=== PATIENT | female | born 1950 | race Caucasian/White ===

== ENCOUNTER → 2019-02-09 11:06 | Outpatient (REF) | payer OTHER, SELFPAY ==
[2019-02-09 12:13] LABS: Influenza A and B by PCR Rapid Negative (Negative)
== END ==
LOC: LAB 11:06
PROVIDERS: Family Provider Nurse Practitioner Family; PCP Nurse Practitioner Family; Visit Provider Internal Medicine
DX: R05 Cough (principal); R50.9 Fever, unspecified
CPT/HCPCS: 87400

== ENCOUNTER → 2019-02-10 11:50 | Outpatient (CLI) | payer OTHER, SELFPAY ==
--- NOTE | 2019-02-10 | DI.RAD.S_ITS ---
PROCEDURE: XR CHEST 2V INDICATIONS: COUGH TECHNIQUE: 2 views of the chest were acquired. COMPARISON: [facility], CT, ABDOMEN/PELVIS WITH CONTRAST, 04/08/2016, 7:06. FINDINGS: Surgical changes and devices: Small bilateral chest wall surgical clips previously present during CT scanning 04/08/16. Lungs and pleura: Lungs are clear when bilateral breast implants are taken into account overlying the lower half of the chest. There is a questionable increased radiodensity over the lower chest seen on the lateral view, however, that could represent a posterior mild or early pneumonia No pleural effusions or pneumothorax. Mediastinum: Mediastinal contours are normal. Heart size is normal. Bones and chest wall: No suspicious bony abnormalities. Soft tissues appear unremarkable. IMPRESSION: On the frontal view the chest there is a hazy increased radiodensity over the mid and lower lungs that is consistent with the previously documented bilateral breast implants superimposed. However on the lateral view there is increased radiodensity over the lower third of the thoracic spine to the degree that mild or early pneumonia may be superimposed in the posterior lung bases. Dictated by: True Valencia M.D. on 02/10/2019 at 12:16 Approved by: True Valencia M.D. on 02/10/2019 at 12:18
== END ==
PROVIDERS: PCP Nurse Practitioner Family; Visit Provider Internal Medicine
DX: R04.2 Hemoptysis (principal); Z98.82 Breast implant status
CPT/HCPCS: 71046

== ENCOUNTER 2019-04-10 00:10 | Emergency (ER) | payer OTHER, SELFPAY ==
[2019-04-10 00:17] VITALS: BP 125/84; PULSE 80; RESP 24; TEMP 37.2; O2SAT 99
[2019-04-10 00:30] VITALS: BP 137/74; PULSE 79; RESP 17; O2SAT 98
--- NOTE | 2019-04-10 00:30 | DI.RAD.S_ITS ---
PROCEDURE: XR CHEST 1V INDICATIONS: chest pain TECHNIQUE: One view of the chest was acquired. COMPARISON: [facility], CT, CT ANGIO CHEST PE PROTOCOL, 04/10/2019, 2:35. [facility], CR, XR CHEST 2V, 02/10/2019, 11:57. FINDINGS: Surgical changes and devices: None. Lungs and pleura: There is moderate patchy opacity within the right midlung. No pleural effusions or pneumothorax. Mediastinum: Mediastinal contours appear normal. Heart size is normal. Bones and chest wall: No suspicious bony lesions. Overlying soft tissues appear unremarkable. IMPRESSION: Right midlung pneumonia. Followup PA and lateral chest films are recommended to ensure resolution, and to exclude underlying malignancy. Dictated by: Inna Gomez M.D. on 04/10/2019 at 7:29 Approved by: Inna Gomez M.D. on 04/10/2019 at 7:30
--- NOTE | 2019-04-10 00:37 | ED_ITS ---
HPI - Chest Pain General Chief Complaint: Chest Pain Stated Complaint: chest pain Time Seen by Provider: 04/10/19 00:29 Source: patient Mode of arrival: ambulatory Limitations: no limitations History of Present Illness HPI narrative: Patient is a 58-year-old female who presents with right-sided chest pain. She says for the past few days she is had some mild body aches but nothing that has stopped her during the day but she definitely felt at night. She has had a mild cough. She says she was diagnosed with pneumonia in January. She has no heart palpitations no shortness of breath. No sweats or rigors. Her pain she says is deep under her right breast. It is worse with breathing. Related Data Home Medications Medication Instructions Recorded Confirmed LEVOTHYROXINE SODIUM (SYNTHROID) 50 mcg PO Q DAY #0 02/09/13 Previous Rx's Medication Instructions Recorded levofloxacin 750 mg PO DAILY #7 tab 04/10/19 Allergies Allergy/AdvReac Type Severity Reaction Status Date / Time latex Allergy Mild RED AND Unverified 02/03/18 11:56 ITCHY SKIN Review of Systems Review of Systems ROS Unobtainable: All systems reviewed & are unremarkable except as noted in HPI and below Constitutional Denies chills, Denies fever(s), Denies lethargy and Denies weakness Eyes Denies change in vision, Denies eye discharge, Denies irritation and Denies loss of vision Cardiovascular Reports chest pain, Denies irregular heart rhythm, Denies lightheadedness, Denies palpitations, Denies dyspnea, Denies dyspnea on exertion and Denies orthopnea Respiratory Denies chest congestion, Reports cough, Denies dyspnea and Denies dyspnea on exertion Gastrointestinal Gastrointestinal: Denies abdominal pain, Denies change in bowel habits, Denies diarrhea, Denies nausea and Denies vomiting Genitourinary Denies hematuria, Denies flank pain, Denies urinary incontinence and Denies urinary urgency Musculoskeletal Denies back pain, Denies muscle weakness, Denies numbness and Denies tingling Integumentary/Breasts Denies pruritus, Denies erythema, Denies rash and Denies wounds Neurologic Denies loss of vision, Denies numbness, Denies tingling and Denies weakness Endocrine Denies palpitations [facility] Medical History Breast cancer (Acute) Graves disease (Acute) Surgical History Status post mastectomy (Acute) Social History Smoking Status: Never smoker alcohol intake: never substance use type: does not use Social History Smoking Status: Never smoker alcohol intake: never substance use type: does not use Exam Initial Vital Signs Initial Vital Signs: Vital Signs Temperature 99 F 04/10/19 00:17 Pulse Rate 80 04/10/19 00:17 Respiratory Rate 24 04/10/19 00:17 Blood Pressure 125/84 04/10/19 00:17 Pulse Oximetry 99 04/10/19 00:17 GENERAL: Well-appearing, well-nourished and in no acute distress. HEENT: Head atraumatic,EOMI, pupils reactive, CARDIOVASCULAR: Regular rate and rhythm without murmurs, rubs or gallops. RESPIRATORY: Breath sounds equal bilaterally, no wheezes rales or rhonchi. ABDOMEN: Soft, nontender. Normoactive bowel sounds all 4 quadrants. No guarding or rebound. EXTREMITIES: Normal range of motion, no clubbing or edema. Neurovascularly intact NEUROLOGICAL: Alert and oriented x4.Normal gait and speech. SKIN: Warm, dry, no laceration, no petechiae, no rashes or lesions. Course Orders Ordered: ED Orders 04/10/19 EKG-12 Lead Routine 04/10/19 00:30 XR chest 1V Stat 04/10/19 00:45 Complete Blood Count AUTO DIFF Stat Comprehensive Metabolic Panel Stat Lipase Stat Partial Thromboplastin Time Stat Prothrombin Time INR Stat Troponin & CK Cardiac Panel Stat 04/10/19 02:08 CT angio chest PE protocol Stat 04/10/19 03:43 Troponin I Stat Discontinued Medications Levofloxacin (Levaquin) 750 mg PO NOW ONE Stop: 04/10/19 04:39 Last Admin: 04/10/19 04:47 Dose: 750 mg Vital Signs - 8 hr 04/10/19 00:17 04/10/19 00:30 04/10/19 00:45 Temperature 99 F Pulse Rate 80 79 82 Respiratory Rate 24 17 17 Blood Pressure 125/84 Blood Pressure [Left Arm] 137/74 120/70 Pulse Oximetry 99 98 99 04/10/19 02:15 04/10/19 02:30 04/10/19 04:46 Temperature Pulse Rate 74 69 66 Respiratory Rate 17 15 15 Blood Pressure Blood Pressure [Left Arm] 115/68 117/70 121/69 Pulse Oximetry 97 97 100 MDM - Chest Pain Lab Data Attestation: I reviewed the patient's lab results. Result diagrams: 04/10/19 00:45 04/10/19 00:45 Lab Results 04/10/19 04/10/19 04/10/19 Range/Units 00:45 00:45 00:45 WBC 7.6 (4.5-11.0) X10^3/uL RBC 3.93 L (4.0-5.2) X10^6/uL Hgb 12.7 (12.0-16.0) g/dL Hct 37.4 (36-46) % MCV 95.0 (80-100) fL MCH 32.4 (26-34) PG MCHC 34.1 (30-36) % RDW 13.6 (11.6-14.8) % Plt Count 208 (150-400) X10^3/uL Neut % (Auto) 73.2 (50-75) % Lymph % (Auto) 17.1 L (25-40) % [place] % (Auto) 7.2 (3-14) % Eos % (Auto) 2.1 (2-4) % Baso % (Auto) 0.4 (0-2) % Neut # (Auto) 5600 (0027-9998) /uL Lymph # (Auto) 1300 (1235-4423) /uL [place] # (Auto) 500 (0-900) /uL Eos # (Auto) 200 (0-450) /uL Baso # (Auto) 0 (0-100) /uL PT 11.9 (10.1-12.7) SECONDS INR 1.0 (0.9-1.3) APTT 31 (26.4-36.2) SECONDS Sodium 137 (137-145) mmol/L Potassium 4.0 (3.4-5.1) mmol/L Chloride 101 (98-107) mmol/L Carbon Dioxide 30 (22-32) mmol/L BUN 25 H (7-17) mg/dL Creatinine 0.80 (0.52-1.04) mg/dL Estimated GFR > 60.0 (>60) mL/min BUN/Creatinine Ratio 31.3 H (6-22) Glucose 139 H (80-110) mg/dL Calcium 10.0 (8.4-10.2) mg/dL Total Bilirubin 0.7 (0.2-1.3) mg/dL AST 36 (14-36) IU/L ALT 20 (9-52) IU/L Alkaline Phosphatase 106 (38-126) U/L Total Creatine Kinase 105 (30-135) U/L CK-MB (CK-2) 1.47 (<2.37) ng/mL CK-MB (CK-2) Rel Index 1.4 L (1.5-5.0) % Troponin I < 0.012 (0.01-0.034) ng/mL Total Protein 7.9 (6.3-8.2) g/dL Albumin 4.2 (3.5-5.0) g/dL Globulin 3.7 (1.7-4.1) g/dL Albumin/Globulin Ratio 1.1 (1.0-2.8) Lipase 53 (23-300) U/L 04/10/19 Range/Units 03:43 WBC (4.5-11.0) X10^3/uL RBC (4.0-5.2) X10^6/uL Hgb (12.0-16.0) g/dL Hct (36-46) % MCV (80-100) fL MCH (26-34) PG MCHC (30-36) % RDW (11.6-14.8) % Plt Count (150-400) X10^3/uL Neut % (Auto) (50-75) % Lymph % (Auto) (25-40) % [place] % (Auto) (3-14) % Eos % (Auto) (2-4) % Baso % (Auto) (0-2) % Neut # (Auto) (5601-0067) /uL Lymph # (Auto) (5557-8253) /uL [place] # (Auto) (0-900) /uL Eos # (Auto) (0-450) /uL Baso # (Auto) (0-100) /uL PT (10.1-12.7) SECONDS INR (0.9-1.3) APTT (26.4-36.2) SECONDS Sodium (137-145) mmol/L Potassium (3.4-5.1) mmol/L Chloride (98-107) mmol/L Carbon Dioxide (22-32) mmol/L BUN (7-17) mg/dL Creatinine (0.52-1.04) mg/dL Estimated GFR (>60) mL/min BUN/Creatinine Ratio (6-22) Glucose (80-110) mg/dL Calcium (8.4-10.2) mg/dL Total Bilirubin (0.2-1.3) mg/dL AST (14-36) IU/L ALT (9-52) IU/L Alkaline Phosphatase (38-126) U/L Total Creatine Kinase (30-135) U/L CK-MB (CK-2) (<2.37) ng/mL CK-MB (CK-2) Rel Index (1.5-5.0) % Troponin I < 0.012 (0.01-0.034) ng/mL Total Protein (6.3-8.2) g/dL Albumin (3.5-5.0) g/dL Globulin (1.7-4.1) g/dL Albumin/Globulin Ratio (1.0-2.8) Lipase (23-300) U/L Imaging Data Chest x-ray: Attestation: I personally reviewed and interpreted this imaging study as follows: My impression: Right middle lobe consolidation new from x-ray in January. CT scan - chest: Radiologist's impression: shift supervisor report: Negative for pulmonary embolism consolidation within the right lower lobe extending into the hilar favoring pneumonia. Neoplasm within the differential. Follow-up advised. Bronchial mucus plugging posterior left lobe. ECG Data Attestation: I personally reviewed and interpreted this ECG as follows: Prior ECG tracings: available for review Interpretation: Normal sinus rhythm rate [address] changes no T-wave inversions MDM Narrative Medical decision making narrative: Patient's pain has overall improved. She appears nontoxic she has no leukocytosis she is afebrile. X-ray mass versus pneumonia. She has history of breast cancer, x-ray was actually negative in January. CT has rule out pulmonary embolism and suggests more of a pneumonia picture. She does have a cough and some body aches. She states that she is going away next week for her son's wedding, and wants to make sure she is well. Is given a 1st dose of antibiotics in the ED. She overall appears well and not septic. Discharge Plan Departure Patient Disposition: Home Clinical Impression: Pneumonia Qualifiers: Pneumonia type: due to unspecified organism Laterality: right Lung location: lower lobe of lung Qualified Code(s): J18.1 - Lobar pneumonia, unspecified organism Discharge Date/Time: 04/10/19 04:55 Interventions: ED Discharge Assessment Last Done: 04/10/19 04:55 Instructions: DI for Pneumonia -- Adult Activity Restrictions/Additional Instructions: *You have been diagnosed with pneumonia right middle *What to do: Increase activity as tolerated, patient go away as pneumonia improved. However it is recommended that you have a follow-up x-ray in the next 2-3 months to make sure resolution. *Continue to take medications as directed Levaquin 750 mg 1 tab daily for 7 days. *Follow up with your primary care provider in 2-3 days *Return to ER if you should have increasing shortness of breath, increasing pain or any new, worsening or concerning symptoms Prescriptions: New levofloxacin 750 mg tablet 750 mg PO DAILY Qty: 7 RF: 0 No Action LEVOTHYROXINE SODIUM (SYNTHROID) 50 mcg PO Q DAY Qty: 0 RF: 0 Referrals: Melanie Yu ARNP [Primary Care Provider] -
[2019-04-10 00:45] VITALS: BP 120/70; PULSE 82; RESP 17; O2SAT 99
[2019-04-10 00:52] LABS: Add Manual Diff / Slide Review NO; Basophils Absolute Auto 0 /uL (0-100); Basophils Percent Auto 0.4 % (0-2); Eosinophils Absolute Auto 200 /uL (0-450); Eosinophils Percent Auto 2.1 % (2-4); Hematocrit 37.4 % (36-46); Hemoglobin 12.7 g/dL (12.0-16.0); Lymphocytes Absolute Auto 1300 /uL (1100-4500); Lymphocytes Percent Auto 17.1 % (25-40); Mean Corpuscular HGB Conc 34.1 % (30-36); Mean Corpuscular Hemoglobin 32.4 PG (26-34); Monocytes Absolute Auto 500 /uL (0-900); Monocytes Percent Auto 7.2 % (3-14); Neutrophils Absolute Auto 5600 /uL (1500-7000); Neutrophils Percent Auto 73.2 % (50-75); Platelet Count 208 X10^3/uL (150-400); Red Blood Cell Count 3.93 X10^6/uL (4.0-5.2); Red Cell Distribution Width 13.6 % (11.6-14.8); White Blood Cell Count 7.6 X10^3/uL (4.5-11.0)
[2019-04-10 00:58] LABS: Prothrombin Time 11.9 SECONDS (10.1-12.7)
[2019-04-10 01:00] LABS: PTT Partial Thromboplastin Tim 31 SECONDS (26.4-36.2)
[2019-04-10 01:02] LABS: Alanine Aminotransferase 20 IU/L (9-52); Albumin 4.2 g/dL (3.5-5.0); Albumin Globulin Ratio 1.1 (1.0-2.8); Alkaline Phosphatase 106 U/L (38-126); Aspartate Aminotransferase 36 IU/L (14-36); BUN Creatinine Ratio 31.3 (6-22); Bilirubin Total 0.7 mg/dL (0.2-1.3); Blood Urea Nitrogen 25 mg/dL (7-17); Carbon Dioxide 30 mmol/L (22-32); Chloride 101 mmol/L (98-107); Creatine Kinase 105 U/L (30-135); Estimated Glomerular Filt Rate > 60.0 mL/min (>60); Globulin 3.7 g/dL (1.7-4.1); Glucose 139 mg/dL (80-110); HEMOLYSIS < 15 (0-50); Lipase 53 U/L (23-300); Sodium 137 mmol/L (137-145); Total Protein 7.9 g/dL (6.3-8.2)
[2019-04-10 01:13] LABS: Troponin I < 0.012 ng/mL (0.01-0.034)
[2019-04-10 01:17] LABS: CKMB % Relative Index 1.4 % (1.5-5.0); Creatine Kinase MB 1.47 ng/mL (<2.37)
--- NOTE | 2019-04-10 02:08 | DI.CT.S_ITS ---
PROCEDURE: CT ANGIO CHEST PE PROTOCOL INDICATIONS: right chest pain, hx breast CA, TECHNIQUE: After the administration of intravenous contrast, 2 mm thick sections acquired from the pulmonary apices to the posterior costophrenic angles. 3-dimensional maximum intensity projection (MIP) coronal and sagittal reformats were then acquired through the thorax. For radiation dose reduction, the following was used: automated exposure control, adjustment of mA and/or kV according to patient size. COMPARISON: [facility], CR, XR CHEST 1V, 04/10/2019, 1:31. [facility], CT, THORAX WITH CONTRAST, 08/17/2009, 11:04. FINDINGS: Image quality: Excellent. Pulmonary arteries: Pulmonary arteries are normal in size, and demonstrate no intraluminal filling defects to suggest central pulmonary embolism. Lungs and pleura: There is mild patchy airspace opacity within the left lung base posteriorly. There is moderate patchy perihilar opacity within the right lower lobe. Mild patchy opacity within the right upper and right middle lobes. No pleural effusions or pneumothorax. Central and peripheral airways are patent. Mediastinum: Heart size is normal, without pericardial effusion. 15 mm short axis right hilar adenopathy. Calcified precarinal lymph nodes. 19 mm short axis subcarinal adenopathy. Thoracic aorta is normal in caliber and enhancement. Esophagus is normal in caliber, without hiatal hernia. Bones and chest wall: Bilateral breast implants are present. No suspicious bony lesions. Ribs and thoracic spine appear intact throughout. Thyroid gland is within normal limits. No axillary or supraclavicular adenopathy. Abdomen: Visualized portions of the upper abdomen demonstrate multiple calcifications within the spleen. IMPRESSION: 1. No pulmonary embolus. 2. Multifocal bilateral pneumonia. 3. Mediastinal and right hilar adenopathy, likely reactive. Followup chest CT in 3 months is recommended to ensure resolution, and to exclude underlying malignancy. 4. Remote granulomatous disease. 5. Concordant with preliminary interpretation. Dictated by: Inna Gomez M.D. on 04/10/2019 at 7:41 Approved by: Inna Gomez M.D. on 04/10/2019 at 7:45
[2019-04-10 02:15] VITALS: BP 115/68; PULSE 74; RESP 17; O2SAT 97
[2019-04-10 02:30] VITALS: BP 117/70; PULSE 69; RESP 15; O2SAT 97
[2019-04-10 04:14] LABS: Troponin I < 0.012 ng/mL (0.01-0.034)
[2019-04-10 04:46] VITALS: BP 121/69; PULSE 66; RESP 15; O2SAT 100
[2019-04-10] MEDS: levoFLOXacin 250 MG TABLET 750 MG PO (04:47)
== END 2019-04-10 04:55 | disposition home or self-care (01) ==
PROVIDERS: Emergency Provider Emergency Medicine; PCP Nurse Practitioner Family
DX: J18.1 Lobar pneumonia, unspecified organism (principal); R07.9 Chest pain, unspecified
CPT/HCPCS: 36415; 36591; 71045; 71275; 80053; 82550; 82553; 83690; 84484; 85025; 85610; 85730; 93005; 99283; 99285; Q9967

== ENCOUNTER 2019-08-04 08:46 | Outpatient (RCR) | payer OTHER, SELFPAY ==
--- NOTE | 2019-08-04 16:45 | PT.OIE ---
Current Diagnoses Benign paroxysmal vertigo, right ear (08/04/19) Past Medical History (Last Reviewed 04/10/19 @ 04:32 by Elizabeth Ma DO) Breast cancer (Acute) Graves disease (Acute) Past Surgical History (Last Reviewed 04/10/19 @ 04:32 by Elizabeth Ma DO) Status post mastectomy (Acute) Visit Care Team Role Provider Type AINSLEY Vega Attending Provider Non-Staff Primary Care Provider Specialty: Medical Address: [address] [place] [address], [id number] Email: Physical Therapy Initial Evaluation PT-OP-A Visit Information Start: 08/05/19 08:26 Freq: Status: Active Protocol: Document 08/04/19 16:00 DCW (Rec: 08/05/19 08:55 DCW [id number]) Out-Patient Physical Therapy Visit Information Visit Information Visit Type Initial Evaluation Visit Start Time 16:00 Visit Stop Time 16:45 Total Visit Minutes 45 Visit Number 1 Number of UNDERWRITING SPECIALIST Visits 0 Evaluation Information Evaluation Date 08/04/19 PT-OP-B Current Condition Start: 08/05/19 08:26 Freq: Status: Active Protocol: Document 08/04/19 16:00 DCW (Rec: 08/05/19 08:55 DC [id number]) Current Condition History of Current Condition Onset Date 3 week history Current Complaints The room spins when I get up from bed History of Current Condition Pt is a 69 year old female complaining of a three week history of both spontaneous and motion-induced vertigo. Pt notes that typically, she gets dizziness with getting into and out of bed, but will also occasionally notice a brief episode of vertigo when just walking around, not doing anything in particular with my head. Pt reports episodes last a few seconds each time, and occur about six times each day. Pt denies recent hearing changes, tinnitus, diplopia, dysarthria , discoordination, or decreased mentation/ consciousness. Pt denies hx of HTN, hyperlipidemia, diabetes , arrhythmia, head trauma, seizure, migraines, back/neck problems, CVA, anxiety/panic disorders, depression, or excessive smoking or drinking. Pt is 18 years removed from breast cancer treatment, and appears to be in complete remission at this time. Pt also has a history of Graves disease, and she reports the treatment was to kill my thyroid. Treatment Goals Patient/Caregiver Goals Eliminate position-dependent vertigo PT-OP-C Subjective Start: 08/05/19 08:26 Freq: Status: Active Protocol: Document 08/04/19 16:00 DCW (Rec: 08/05/19 08:55 DCW [id number]) Patient Questionnaires Dizziness Handicap Inventory DHI Score 12% DHI Functional Impairment 1 to 19% Impaired (Score 1-19) PT-OP-O Vestibular Start: 08/05/19 08:26 Freq: Status: Active Protocol: Document 08/04/19 16:00 DCW (Rec: 08/05/19 08:55 DCW [id number]) Vestibular Assessment Screening Tests Vestibular Artery Screen Negative Sharp-Tamar Test Negative Auditory Tests Rios Test Negative Rinne Test Negative Air Conduction Results Equal Visual Testing Smooth Pursuits Horizontal WNL Smooth Pursuits Vertical WNL Saccades Horizontal WNL Gaze Evoked Nystagmus With Fixation Negative Gaze Evoked Nystagmus Without Fixation Negative Heave Test Positive Bilateral Thrust Head Positive Bilateral Head Shake Negative Positional Testing [place]-Hallpike Negative Left,Negative Right Rolling Test Negative Left,Negative Right Supine to Sit Positive Comments Vestibular Comments Lisandra-Hallpike testing appeared to be negative bilaterally, however pt then suffered a reversal with vertigo and nystagmus upon returning to sitting. PT-OP-Q Treatments Start: 08/05/19 08:26 Freq: Status: Active Protocol: Document 08/04/19 16:00 DCW (Rec: 08/05/19 08:55 DCW [id number]) Canalithic Repositioning BPPV Treatment Brigette Affected Canal(s) Right posterior? Reps x2 PT-OP-T Assessment and Plan Start: 08/05/19 08:26 Freq: Status: Active Protocol: Document 08/04/19 16:00 DCW (Rec: 08/05/19 08:55 DCW [id number]) Physical Therapy Assessment Rehab Potential Rehabilitation Potential Good Evaluation Complexity Number of Personal Factors/Comorbidities 1-2 Number of Body Systems Impaired 1-2 Clinical Presentation at Evaluation Unstable Impairments Impairments Balance,Coordination, Vestibular Goals Two Impairment Pt displayed reversal with supine->sit Halfway Goal (LTG) Positional testing to be entirely negative LTG Duration 09/04/19 One Impairment Pt become vertiginous with bed mobility Short Term Goal (STG) Pt to report no symptoms when getting into or out of bed over a period of one week STG Duration 08/18/19 Assessment Summary Assessment Pt's vestibular testing was largely negative, however while setting up for the Lisandra- Hallpike test, pt reported that she had been through the test previously at her PCP, and described a positive right Hallpike. Although today's test was negative, she did demonstrate a reversal upon returning to sitting. 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 A right -sided Brigette maneuver was performed, which pt tolerated well. Pt was educated on BPPV, expectations for treatment, possible recurrence (BPPV has a ~50% recurrence rate in the five years following treatment ), and post-Brigette restrictions . Pt to return in ~1 week for a follow-up appointment, and intermittently afterward as indicated for treatment of BPPV. Physical Therapy Plan Frequency and Duration Frequency of Treatment 1x/Week Duration of Treatment 6 weeks Plan of Care Start Date 08/04/19 Plan of Care End Date 09/15/19 Therapeutic Interventions Therapeutic Interventions Balance Training,Canalithic Repositioning,Neuromuscular Re -education,Vestibular Rehabilitation Next Visit Focus/Plan Next Note Type Treatment Note Next Visit Plan Positional testing, CRM as indicated
--- NOTE | 2019-08-08 15:35 | PT.OPDS ---
Current Diagnoses Benign paroxysmal vertigo, right ear (08/04/19) Visit Care Team Role Provider Type AINSLEY Vega Attending Provider Non-Staff Primary Care Provider Specialty: Medical Address: [address] [place] [address], [facility] Email: Visit Number Visit Number 1 Discharge Summary PT-OP-B Current Condition Start: 08/05/19 08:26 Freq: Status: Active Protocol: Document 08/04/19 16:00 DCW (Rec: 08/05/19 08:55 DCW [id number]) Current Condition History of Current Condition Onset Date 3 week history Current Complaints The room spins when I get up from bed History of Current Condition Pt is a 69 year old female complaining of a three week history of both spontaneous and motion-induced vertigo. Pt notes that typically, she gets dizziness with getting into and out of bed, but will also occasionally notice a brief episode of vertigo when just walking around, not doing anything in particular with my head. Pt reports episodes last a few seconds each time, and occur about six times each day. Pt denies recent hearing changes, tinnitus, diplopia, dysarthria , discoordination, or decreased mentation/ consciousness. Pt denies hx of HTN, hyperlipidemia, diabetes , arrhythmia, head trauma, seizure, migraines, back/neck problems, CVA, anxiety/panic disorders, depression, or excessive smoking or drinking. Pt is 18 years removed from breast cancer treatment, and appears to be in complete remission at this time. Pt also has a history of Graves disease, and she reports the treatment was to kill my thyroid. Treatment Goals Patient/Caregiver Goals Eliminate position-dependent vertigo PT-OP-C Subjective Start: 08/05/19 08:26 Freq: Status: Active Protocol: Document 08/04/19 16:00 DCW (Rec: 08/05/19 08:55 DCW [id number]) Patient Questionnaires Dizziness Handicap Inventory DHI Score 12% DHI Functional Impairment 1 to 19% Impaired (Score 1-19) PT-OP-O Vestibular Start: 08/05/19 08:26 Freq: Status: Active Protocol: Document 08/04/19 16:00 DCW (Rec: 08/05/19 08:55 DCW [id number]) Vestibular Assessment Screening Tests Vestibular Artery Screen Negative Sharp-Tamar Test Negative Auditory Tests Rios Test Negative Rinne Test Negative Air Conduction Results Equal Visual Testing Smooth Pursuits Horizontal WNL Smooth Pursuits Vertical WNL Saccades Horizontal WNL Gaze Evoked Nystagmus With Fixation Negative Gaze Evoked Nystagmus Without Fixation Negative Heave Test Positive Bilateral Thrust Head Positive Bilateral Head Shake Negative Positional Testing Enterprise-Hallpike Negative Left,Negative Right Rolling Test Negative Left,Negative Right Supine to Sit Positive Comments Vestibular Comments Lisandra-Hallpike testing appeared to be negative bilaterally, however pt then suffered a reversal with vertigo and nystagmus upon returning to sitting. PT-OP-T Assessment and Plan Start: 08/05/19 08:26 Freq: Status: Active Protocol: Document 08/08/19 15:33 DC (Rec: 08/08/19 15:35 [facility] [id number]) Physical Therapy Assessment Goals Two Impairment Pt displayed reversal with supine->sit Clutch Inspector Goal (LTG) Positional testing to be entirely negative LTG Duration 09/04/19 One Impairment Pt become vertiginous with bed mobility Short Term Goal (STG) Pt to report no symptoms when getting into or out of bed over a period of one week STG Duration 08/18/19 Assessment Summary Assessment Pt phoned PT clinic today, requesting discharge. Initial eval fixed her complaints of positional vertigo, further appointments are no longer needed. Physical Therapy Plan Frequency and Duration Frequency of Treatment 1x/Week Duration of Treatment 6 weeks Plan of Care Start Date 08/04/19 Plan of Care End Date 09/15/19 Discharge Physical Therapy Discharge Reasons Patient Request Next Visit Focus/Plan Next Note Type Discharge Summary
== END 2019-08-24 15:37 | disposition home or self-care (01) ==
LOC: PHYS 08:46
PROVIDERS: PCP Nurse Practitioner Family; Visit Provider Nurse Practitioner Family
DX: H81.11 Benign paroxysmal vertigo, right ear (principal)
CPT/HCPCS: 95992; 97161

== ENCOUNTER → 2019-08-05 07:57 | Outpatient (CLI) | payer OTHER, SELFPAY ==
--- NOTE | 2019-08-05 | DI.RAD.S_ITS ---
PROCEDURE: XR CHEST 2V INDICATIONS: REPEAT PNEUMONIA CHECK TECHNIQUE: 2 views of the chest were acquired. COMPARISON: [facility], CT, CT ANGIO CHEST PE PROTOCOL, 04/10/2019, 2:35. [facility], CR, XR CHEST 1V, 04/10/2019, 1:31. [facility], CR, XR CHEST 2V, 02/10/2019, 11:57. FINDINGS: Surgical changes and devices: None. Lungs and pleura: Lungs are clear. No pleural effusions or pneumothorax. Mediastinum: Mediastinal contours are normal. Heart size is normal. Bones and chest wall: No suspicious bony abnormalities. Soft tissues appear unremarkable. IMPRESSION: Normal for age, resolution of prior pneumonia pattern. Dictated by: True Valencia M.D. on 08/05/2019 at 9:23 Approved by: True Valencia M.D. on 08/05/2019 at 9:25
== END ==
PROVIDERS: PCP Nurse Practitioner Family; Visit Provider Nurse Practitioner Family
DX: Z09 Encounter for follow-up examination after completed treatment for conditions other than malignant neoplasm (principal); Z87.01 Personal history of pneumonia (recurrent)
CPT/HCPCS: 71046

== ENCOUNTER 2019-12-02 19:58 | Observation (INO) | payer OTHER, MEDICARE, SELFPAY ==
[2019-12-02 20:06] VITALS: BP 127/60; PULSE 71; RESP 18; TEMP 36.7; O2SAT 100; BMI 27.2
[2019-12-02 20:53] LABS: Add Manual Diff / Slide Review NO; Basophils Absolute Auto 100 /uL (0-100); Basophils Percent Auto 0.5 % (0-2); Eosinophils Absolute Auto 100 /uL (0-450); Eosinophils Percent Auto 1.1 % (2-4); Hematocrit 32.7 % (36-46); Hemoglobin 11.3 g/dL (12.0-16.0); INR 1.1 (0.9-1.3); Lymphocytes Absolute Auto 1700 /uL (1100-4500); Lymphocytes Percent Auto 18.3 % (25-40); Mean Corpuscular HGB Conc 34.6 % (30-36); Mean Corpuscular Volume 95.4 fL (80-100); Monocytes Absolute Auto 600 /uL (0-900); Monocytes Percent Auto 6.8 % (3-14); Neutrophils Absolute Auto 6700 /uL (1500-7000); Neutrophils Percent Auto 73.3 % (50-75); Platelet Count 292 X10^3/uL (150-400); Prothrombin Time 12.2 SECONDS (10.1-12.7); Red Blood Cell Count 3.43 X10^6/uL (4.0-5.2); Red Cell Distribution Width 12.9 % (11.6-14.8); White Blood Cell Count 9.1 X10^3/uL (4.5-11.0)
[2019-12-02 20:55] LABS: PTT Partial Thromboplastin Tim 25 SECONDS (26.4-36.2)
[2019-12-02 21:11] LABS: Alanine Aminotransferase 17 IU/L (<35); Albumin 3.9 g/dL (3.5-5.0); Albumin Globulin Ratio 1.3 (1.0-2.8); Alkaline Phosphatase 70 U/L (38-126); Aspartate Aminotransferase 30 IU/L (14-36); BUN Creatinine Ratio 26.7 (6-22); Bilirubin Total 0.5 mg/dL (0.2-1.3); Blood Urea Nitrogen 24 mg/dL (7-17); Calcium 9.9 mg/dL (8.4-10.2); Carbon Dioxide 26 mmol/L (22-32); Chloride 107 mmol/L (98-107); Estimated Glomerular Filt Rate > 60.0 mL/min (>60); Glucose 128 mg/dL (80-110); HEMOLYSIS 19 (0-50); Potassium 3.8 mmol/L (3.4-5.1); Sodium 140 mmol/L (137-145); Total Protein 6.9 g/dL (6.3-8.2)
[2019-12-02 21:30] VITALS: BP 112/61; PULSE 78; RESP 16; O2SAT 94
[2019-12-02 22:30] VITALS: BP 104/58; PULSE 78; RESP 20; O2SAT 96
[2019-12-02 22:40] VITALS: BP 83/48; PULSE 61; RESP 28; O2SAT 99
[2019-12-02] MEDS: SODIUM CHLORIDE 0.9% 1,000 ML 1000 ML IV ×2 (22:40→22:50)
--- NOTE | 2019-12-02 22:47 | DI.CT.S_ITS ---
PROCEDURE: CT ABDOMEN PELVIS W CON INDICATIONS: rectal bleeding TECHNIQUE: After the administration of oral and intravenous contrast, 5 mm thick sections acquired from the diaphragms to the symphysis. 5 mm thick coronal and sagittal reformats were performed. For radiation dose reduction, the following was used: automated exposure control, adjustment of mA and/or kV according to patient size. COMPARISON: [facility], CT, ABDOMEN/PELVIS WITH CONTRAST, 04/08/2016, 7:06. FINDINGS: Image quality: Diagnostic. ABDOMEN: Lung bases: Lung bases are clear. Heart size is normal. Solid organs: Calcified granulomas within the liver and spleen are present. No focal liver or splenic lesions are evident. There is minimal intrahepatic jesus redilatation. No significant extrahepatic biliary dilatation is identified. Multiple layering calcified gallstones are present within the gallbladder. The pancreas and adrenals are within normal limits. The kidneys are also within normal limits. There is no hydronephrosis or definite renal calculus. Peritoneum and bowel: There is a small hiatal hernia. The stomach is otherwise unremarkable. The small bowel loops are nondilated. Extensive distal colonic diverticulosis is evident without surrounding inflammation to definitively suggest diverticulitis. The midportion of the transverse colon appears to be collapsed, rather than related to a focal lesion. However, metastases cannot be completely excluded. The appendix is not definitely seen. There is no free fluid, loculated fluid collection or free air. Nodes and vessels: No retroperitoneal or mesenteric adenopathy. Aorta and inferior vena cava are normal in caliber. There is aortic atherosclerosis. Bones: No acute fracture or suspicious osseous lesion is identified. There moderate degenerative changes of the lumbar spine. PELVIS: Genitourinary: Bladder wall thickness is normal. The uterus is surgically absent. The ovaries are likely either atrophic or surgically absent. Miscellaneous: No inguinal hernias or adenopathy. No free fluid or loculated fluid collection is identified. There is no free air. Bones: No suspicious bony lesions. No acute pelvic fractures are identified. There mild degenerative changes of the pelvic joints. IMPRESSION: 1. Extensive colonic diverticulosis without evidence of diverticulitis. 2. Short segment area of narrowing involving the transverse colon most likely is physiologic (related to a lack of intraluminal stool at this location). However, colonoscopy may be helpful to exclude a colonic lesion/neoplasm, particularly if there is clinical concern for cancer. 3. No bowel obstruction. There may be constipation. 4. Cholelithiasis. Note: The preliminary report provided by [facility] is concordant with the final report. Dictated by: Adonay Lopez M.D. on 12/03/2019 at 7:17 Approved by: Adonay Lopez M.D. on 12/03/2019 at 7:23
[2019-12-02 22:55] VITALS: BP 71/50; PULSE 73; RESP 13; O2SAT 100
[2019-12-02 23:40] VITALS: BP 146/78; PULSE 75; RESP 38; O2SAT 98
[2019-12-02] MEDS: ONDANSETRON 4 MG/2 ML INJ IV (23:44)
--- NOTE | 2019-12-02 23:48 | ED.GIBLEED ---
HPI - GI Bleed General Chief complaint: GI Bleed Stated complaint: lots of blood in stool and clots, weakness Time Seen by Provider: 12/02/19 22:44 Source: patient Mode of arrival: Ambulatory Limitations: no limitations History of Present Illness HPI Narrative: CC: rectal bleeding HPI: The patient is a 69-year-old female who presented to the emergency department with bright red rectal bleeding that started at 5:30 p.m. tonight. The patient has never had rectal bleeding before. She denies having any significant abdominal pain but has had mild cramping. She has had spurts in which she has had bright red bleeding. She denies a personal history of diverticulosis or diverticulitis. She denies a history of Crohn's disease or ulcerative colitis. She is not on any blood thinners. 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 She has had chemotherapy and radiation therapy for this cancer 20 years ago. She has also had a vaginal hysterectomy 30 years ago. Today she has had cold sweats but has had no fever or chills. She denies headache. She has been dizzy and lightheaded but has not noted any palpitations. She denies any chest pain. She has had nausea but no vomiting and denies any diarrhea. This is the 1st time she has ever had rectal bleeding as such. She denies any urinary symptoms. Related Data Home Medications Medication Instructions Recorded Confirmed LEVOTHYROXINE SODIUM (SYNTHROID) 112 mcg PO Q DAY #0 02/09/13 12/03/19 diphenhydramine HCl [Allergy 25 mg PO TID PRN 12/03/19 12/03/19 (diphenhydramine)] multivit with min-folic acid 0.4 mg PO DAILY 12/03/19 12/03/19 [Adult One Daily Multivitamin] Allergies Allergy/AdvReac Type Severity Reaction Status Date / Time latex Allergy Mild RED AND Verified 12/02/19 20:06 ITCHY SKIN Review of Systems Review of Systems ROS Unobtainable: All systems reviewed & are unremarkable except as noted in HPI and below Patient History Medical History Breast cancer (Acute) Graves disease (Acute) Surgical History Status post mastectomy (Acute) Social History household members: none Smoking Status: Never smoker alcohol intake: current substance use type: does not use Smoking Status: Never smoker Substance Use Type: does not use Exam Narrative Exam Narrative: PHYSICAL EXAM: CONSTITUTIONAL: Awake, Alert, Oriented, Coherent, Cooperative in moderate distress. The patient is very stoic and appears very pale HEAD: AT/NC EENT: PERRL, FROM of eyes, no discharge, Oral mucosa is moist and pale. NECK: Supple, no obvious JVD, Trachea is midline without stridor, no palpable LN or masses. SPINE: No gross deformity, no palpable tenderness of the cervical, thoracic, lumbar or sacral spine. No CVA tenderness. THORAX: No deformity, retractions, chest wall tenderness, subcutaneous air or crepitice. LUNGS: Clear with symmetrical breath sounds without respiratory distress HEART: Heart tones are distant and regular without murmur. There is no tachycardia. ABDOMEN: Soft, in all 4 quadrants except that there was tenderness in the left upper quadrant without guarding rebound or rigidity. EXTREMITIES: No edema, cyanosis, deformity or tenderness. SKIN: No rash, bruising, petechiae or purpura. However there is generalized pallor. NEURO: Awake, alert, oriented, conversive, cranial nerves II-XII are symmetrical and normal, moves all 4 extremities and is ambulatory Initial Vital Signs Initial Vital Signs: Vital Signs Temperature 98.1 F 12/02/19 20:06 Pulse Rate 71 12/02/19 20:06 Respiratory Rate 18 12/02/19 20:06 Blood Pressure 127/60 12/02/19 20:06 Pulse Oximetry 100 12/02/19 20:06 Course Course Course Narrative: 2348 after 900 cc of normal saline the patient's blood pressure has improved to 146/78. [address] scan revealed cholelithiasis and sigmoid diverticulosis without CT evidence of acute diverticulitis. The patient is having rectal bleeding and will be started on Cipro for 400 mg IV and Flagyl 500 mg IV. I will call and discuss the patient with the General surgery on-call. at 2349 the patient's blood pressure was 148/76. White blood count 9.1 hemoglobin 11.3 hematocrit 32.7. BUN 24 GFR was greater than 60. CT scan of the abdomen revealed cholelithiasis and diverticulosis without evidence of diverticulitis. 0000 a repeat hemoglobin hematocrit was ordered on the patient and a call was placed to the general surgeon on-call when she was admitted to the intensive care unit. Orders Ordered: Discontinued Medications Acetaminophen (Tylenol) 325 mg PO PACUNOW PRN PRN Reason: Pain, Mild (1-3) Fentanyl (Sublimaze) 0 mcg IV Q5M PRN PRN Reason: Pain, Moderate (4-6) Hydromorphone HCl (Dilaudid) 0 mg IV Q5MIN PRN PRN Reason: Pain, Mild (1-3) Sodium Chloride (Normal Saline 0.9%) 1,000 mls @ 1,000 mls/hr IV BOLUS ONE Stop: 12/02/19 23:46 Last Infusion: 12/02/19 23:50 Dose: 0 mls/hr Documented by: Admin: 12/02/19 22:50 Dose: 1,000 mls/hr Documented by: CHA Octreotide Acetate 500 mcg/ (Sodium Chloride) 101 mls @ 5.05 mls/hr IV CONT ALEX; Protocol Last Admin: 12/03/19 14:26 Dose: 24.75 mcg/hr, 5 mls/hr Documented by: Infusion: 12/03/19 14:26 Dose: 0 mcg/hr, 0 mls/hr Documented by: Infusion: 12/03/19 13:26 Dose: 0 mcg/hr, 0 mls/hr Documented by: Infusion: 12/03/19 01:40 Dose: 25 mcg/hr, 5.05 mls/hr Documented by: Infusion: 12/03/19 01:25 Dose: 0 mcg/hr, 0 mls/hr Documented by: Admin: 12/02/19 23:54 Dose: 25 mcg/hr, 5.05 mls/hr Documented by: CHA Metronidazole (Flagyl) 500 mg in 100 mls @ 100 mls/hr IV NOW ONE Stop: 12/03/19 00:51 Last Infusion: 12/03/19 01:25 Dose: 0 mls/hr Documented by: Admin: 12/03/19 00:28 Dose: 100 mls/hr Documented by: CHA Ciprofloxacin (Cipro) 400 mg in 200 mls @ 200 mls/hr IV NOW [facility] Sodium Chloride (Normal Saline 0.9%) 1,000 mls @ 1,000 mls/hr IV BOLUS ONE Stop: 12/03/19 02:01 Last Infusion: 12/02/19 22:50 Dose: 0 mls/hr Documented by: Admin: 12/02/19 22:40 Dose: 1,000 mls/hr Documented by: CHA Lactated Ringer's (Lactated Ringers) 1,000 mls @ 100 mls/hr IV CONT ALEX Last Infusion: 12/04/19 04:03 Dose: 0 mls/hr Documented by: Admin: 12/04/19 00:24 Dose: 100 mls/hr Documented by: Infusion: 12/04/19 00:24 Dose: 100 mls/hr Documented by: Admin: 12/03/19 14:26 Dose: 100 mls/hr Documented by: Infusion: 12/03/19 12:30 Dose: 100 mls/hr Documented by: Admin: 12/03/19 02:30 Dose: 100 mls/hr Documented by: BISHNU Sodium Chloride (Normal Saline 0.9%) 1,000 mls @ 1,000 mls/hr IV BOLUS PRN PRN Reason: Fluid replacement Last Infusion: 12/03/19 13:24 Dose: 0 mls/hr Documented by: Admin: 12/03/19 05:21 Dose: 1,000 mls/hr Documented by: BISHNU Levothyroxine Sodium (Synthroid) 50 mcg PO 0600 [facility] Last Admin: 12/04/19 05:41 Dose: Not Given Documented by: Admin: 12/03/19 04:44 Dose: Not Given Documented by: BISHNU Metoclopramide HCl (Reglan) 10 mg IV NOW PRN PRN Reason: Nausea And Vomiting Morphine Sulfate (Morphine) 2 mg IV Q2HR PRN PRN Reason: Pain, Moderate (4-6) Octreotide Acetate (Sandostatin) 50 mcg IV NOW ONE Stop: 12/02/19 23:11 Last Admin: 12/02/19 23:54 Dose: 50 mcg Documented by: CHA Ondansetron HCl (Zofran) 4 mg IV NOW ONE Stop: 12/02/19 20:46 Last Admin: 12/02/19 23:44 Dose: 4 mg Documented by: CHA Ondansetron HCl (Zofran) 4 mg IV Q4HR PRN PRN Reason: Nausea And Vomiting Last Admin: 12/04/19 14:56 Dose: 4 mg Documented by: Admin: 12/03/19 23:50 Dose: 4 mg Documented by: Admin: 12/03/19 19:55 Dose: 4 mg Documented by: TEDDY Ondansetron HCl (Zofran) 4 mg IV NOW PRN PRN Reason: Nausea And Vomiting Pantoprazole Sodium (Protonix) 40 mg IV BID ALEX Last Admin: 12/04/19 08:03 Dose: 40 mg Documented by: Admin: 12/03/19 21:18 Dose: Not Given Documented by: Admin: 12/03/19 10:22 Dose: 40 mg Documented by: Admin: 12/03/19 02:33 Dose: 40 mg Documented by: BISHNU Polyethylene Glycol/Electrolytes (Golytely Solution) 4,000 ml PO NOW ONE Stop: 12/03/19 12:02 Last Admin: 12/03/19 16:19 Dose: 4,000 ml Documented by: TRACEY Vital Signs Vital signs: Vital Signs - 8 hr 12/02/19 21:30 12/02/19 22:30 12/02/19 22:40 Pulse Rate 78 78 61 Respiratory Rate 16 20 28 H Blood Pressure [Left Arm] 112/61 104/58 L 83/48 L Pulse Oximetry 94 96 99 12/02/19 22:55 12/02/19 23:40 12/03/19 00:00 Pulse Rate 73 75 72 Respiratory Rate 13 38 H 16 Blood Pressure [Left Arm] 71/50 L 146/78 H 123/68 Pulse Oximetry 100 98 100 MDM - GI Bleed Medical Records Attestation: I reviewed the patient's medical records. Lab Data Attestation: I reviewed the patient's lab results. Result diagrams: 12/04/19 10:20 12/04/19 01:33 Labs: Lab Results 12/02/19 12/02/19 12/02/19 Range/Units 20:34 20:34 20:34 WBC 9.1 (4.5-11.0) X10^3/uL RBC 3.43 L (4.0-5.2) X10^6/uL Hgb 11.3 L (12.0-16.0) g/dL Hct 32.7 L (36-46) % MCV 95.4 (80-100) fL MCH 33.0 (26-34) PG MCHC 34.6 (30-36) % RDW 12.9 (11.6-14.8) % Plt Count 292 (150-400) X10^3/uL Neut % (Auto) 73.3 (50-75) % Lymph % (Auto) 18.3 L (25-40) % Creek % (Auto) 6.8 (3-14) % Eos % (Auto) 1.1 L (2-4) % Baso % (Auto) 0.5 (0-2) % Neut # (Auto) 6700 (5274-8325) /uL Lymph # (Auto) 1700 (3034-3038) /uL Creek # (Auto) 600 (0-900) /uL Eos # (Auto) 100 (0-450) /uL Baso # (Auto) 100 (0-100) /uL PT 12.2 (10.1-12.7) SECONDS INR 1.1 (0.9-1.3) APTT 25 L D (26.4-36.2) SECONDS Sodium 140 (137-145) mmol/L Potassium 3.8 (3.4-5.1) mmol/L Chloride 107 (98-107) mmol/L Carbon Dioxide 26 (22-32) mmol/L BUN 24 H (7-17) mg/dL Creatinine 0.90 (0.52-1.04) mg/dL Estimated GFR > 60.0 (>60) mL/min BUN/Creatinine Ratio 26.7 H (6-22) Glucose 128 H (80-110) mg/dL Calcium 9.9 (8.4-10.2) mg/dL Total Bilirubin 0.5 (0.2-1.3) mg/dL AST 30 (14-36) IU/L ALT 17 (<35) IU/L Alkaline Phosphatase 70 (38-126) U/L Total Protein 6.9 (6.3-8.2) g/dL Albumin 3.9 (3.5-5.0) g/dL Globulin 3.0 (1.7-4.1) g/dL Albumin/Globulin Ratio 1.3 (1.0-2.8) Blood Type Antibody Screen Crossmatch 12/02/19 Range/Units 20:34 WBC (4.5-11.0) X10^3/uL RBC (4.0-5.2) X10^6/uL Hgb (12.0-16.0) g/dL Hct (36-46) % MCV (80-100) fL MCH (26-34) PG MCHC (30-36) % RDW (11.6-14.8) % Plt Count (150-400) X10^3/uL Neut % (Auto) (50-75) % Lymph % (Auto) (25-40) % Creek % (Auto) (3-14) % Eos % (Auto) (2-4) % Baso % (Auto) (0-2) % Neut # (Auto) (0697-0537) /uL Lymph # (Auto) (1845-9025) /uL Creek # (Auto) (0-900) /uL Eos # (Auto) (0-450) /uL Baso # (Auto) (0-100) /uL PT (10.1-12.7) SECONDS INR (0.9-1.3) APTT (26.4-36.2) SECONDS Sodium (137-145) mmol/L Potassium (3.4-5.1) mmol/L Chloride (98-107) mmol/L Carbon Dioxide (22-32) mmol/L BUN (7-17) mg/dL Creatinine (0.52-1.04) mg/dL Estimated GFR (>60) mL/min BUN/Creatinine Ratio (6-22) Glucose (80-110) mg/dL Calcium (8.4-10.2) mg/dL Total Bilirubin (0.2-1.3) mg/dL AST (14-36) IU/L ALT (<35) IU/L Alkaline Phosphatase (38-126) U/L Total Protein (6.3-8.2) g/dL Albumin (3.5-5.0) g/dL Globulin (1.7-4.1) g/dL Albumin/Globulin Ratio (1.0-2.8) Blood Type O Negative Antibody Screen Negative Crossmatch See Detail ECG Data Attestation: I personally reviewed and interpreted this ECG as follows: Interpretation: The patient's EKG obtained on December 02 at 23:05:49 revealed a normal sinus rhythm with a ventricular rate of 69. Intervals were normal. QTC was 436 milliseconds normal she had borderline left axis deviation. T-waves were inverted in V1 while the T-waves in lead III was flat. There are no other acute diagnostic ST changes or T-wave changes. Discharge Plan Departure Patient Disposition: Admitted As Inpatient Clinical Impression: Bright red rectal bleeding, Acute hypotension, Diverticulosis Cholelithiasis Qualifiers: Cholelithiasis location: gallbladder Cholecystitis presence: without cholecystitis Biliary obstruction: without biliary obstruction Qualified Code(s): K80.20 - Calculus of gallbladder without cholecystitis without obstruction Discharge Date/Time: 12/03/19 01:30 Referrals: Melanie Yu ARNP [Primary Care Provider] - Admit Date/Time: 12/03/19 00:27 Admit Provider: Claire Burroughs
[2019-12-02] MEDS: OCTREOTIDE 100 MCG/ML VIAL 50 MCG IV (23:54)
[2019-12-02] MEDS: OCTREOTIDE 500 MCG in SODIUM CHLORIDE 0.9% 100 ML 5.05 ML IV (23:54)
[2019-12-03] VITALS (21 sets, daily range): BP systolic 90–145; BP diastolic 52–79; PULSE 63–91; RESP 12–26; TEMP 36.2–37; O2SAT 92–100; BMI 27.4
[2019-12-03] MEDS: metroNIDAZOLE 500 MG/100 ML PIGGYBACK 100 MG IV (00:28)
[2019-12-03 01:02] LABS: Hematocrit 29.7 % (36-46); Hemoglobin 10.2 g/dL (12.0-16.0)
[2019-12-03] MEDS: LACTATED RINGERS 1,000 ML 100 ML IV ×2 (02:30→14:26)
[2019-12-03] MEDS: PANTOPRAZOLE 40 MG VIAL IV ×2 (02:33→10:22)
--- NOTE | 2019-12-03 03:05 | PM.HP.1 ---
History of Present Illness History of Present Illness Date Patient Seen: 12/03/19 Time Patient Seen: 03:05 Chief complaint: lots of blood in stool and clots, weakness Narrative: This is a 69 yo woman with history of inflammatory breast cancer 20 years ago, graves disease s/p thyroid radioablation, hysterectomy, who had a normal colonoscopy one year ago. She presented to the ER this evening after acute onset of significant rectal bleeding that started at about 5PM. Her hgb in the ER was 11.3, and came down to 10.2 after fluid resuscitation. She feels her bleeding has slowed down. She denies any abdominal pain, although she has some cramping when passing the blood. She has nausea and lightheadedness when she passed the bloody stool, but feels fine now in terms of that. She had a CT scan in the ER which showed diverticulosis and gall stones. ROS: 13 system review, otherwise negative other than as mentioned in HPI. PE: CONSTITUTIONAL: Awake, Alert, Oriented, Comfortable EENT: PERRL, FROM of eyes, no discharge, Oral mucosa is moist and pink NECK: Supple, no obvious JVD, nontachypneic, brathing comfortably on room air. THORAX: No deformity, retractions, chest wall tenderness, subcutaneous air or crepitice. LUNGS: Clear with symmetrical breath sounds without respiratory distress HEART: NSR; no LE edema; There is no tachycardia. CHEST: bilateral well healed breast reconstruction scars with nipple tattoo's bilaterally ABDOMEN: Soft, nontender, nondistended; no surgical scars EXTREMITIES: No edema, cyanosis, deformity or tenderness. SKIN: No rash, bruising, petechiae or purpura. NEURO: Awake, alert, oriented, conversive, cranial nerves II-XII are symmetrical and normal, moves all 4 extremities and is ambulatory Patient History Medical History Breast cancer (Acute) Graves disease (Acute) Surgical History Status post mastectomy (Acute) Family & Social History Social History: household members none Prior Living Arrangements House Safety & Behavioral: Feels Safe in Current Yes Environment Been Physically Hurt or No Threatened By a Person Suicidal Ideation Description None Suicide Plan Description No Plan Tobacco & Substance use: Smoking Status Never smoker alcohol intake current alcohol intake frequency holiday/special occasion Substance Use Type does not use Meds Home Medications and Allergies Home Medications Medication Instructions Recorded Confirmed Type LEVOTHYROXINE SODIUM (SYNTHROID) 112 mcg PO Q DAY #0 02/09/13 12/03/19 History diphenhydramine HCl [Allergy 25 mg PO TID PRN 12/03/19 12/03/19 History (diphenhydramine)] multivit with min-folic acid 0.4 mg PO DAILY 12/03/19 12/03/19 History [Adult One Daily Multivitamin] Allergies Allergy/AdvReac Type Severity Reaction Status Date / Time latex Allergy Mild RED AND Verified 12/02/19 20:06 ITCHY SKIN Review of Systems Review of Systems ROS: Yes All systems reviewed with the patient and are negative except as otherwise documented Exam Vital Signs (past 8 hours): - 12/02/19 20:06 12/02/19 21:30 12/02/19 22:30 Temperature 98.1 F Pulse Rate 71 78 78 Respiratory Rate 18 16 20 Blood Pressure 127/60 Blood Pressure [Left Arm] 112/61 104/58 L Pulse Oximetry 100 94 96 12/02/19 22:40 12/02/19 22:55 12/02/19 23:40 Temperature Pulse Rate 61 73 75 Respiratory Rate 28 H 13 38 H Blood Pressure Blood Pressure [Left Arm] 83/48 L 71/50 L 146/78 H Pulse Oximetry 99 100 98 12/03/19 00:00 12/03/19 00:30 12/03/19 01:19 Temperature 98.6 F Pulse Rate 72 72 71 Respiratory Rate 16 22 18 Blood Pressure 123/68 Blood Pressure [Left Arm] 123/68 145/79 H Pulse Oximetry 100 100 98 12/03/19 02:23 Temperature Pulse Rate 69 Respiratory Rate 18 Blood Pressure 117/61 Blood Pressure [Left Arm] Pulse Oximetry 95 Oxygen Delivery Method Room Air Oxygen Flow Rate [address] scan - abdomen: My impression: Diverticulosis, gall stones Radiologist's impression: Unable to access radiologist report, but per ER MD nothing reported other than diverticulosis and gall stones Labs Result Diagrams: 12/03/19 05:56 12/02/19 20:34 Labs: Laboratory Results - last 24 hr 12/02/19 12/02/19 12/02/19 20:34 20:34 20:34 WBC 9.1 RBC 3.43 L Hgb 11.3 L Hct 32.7 L MCV 95.4 MCH 33.0 MCHC 34.6 RDW 12.9 Plt Count 292 Neut % (Auto) 73.3 Lymph % (Auto) 18.3 L [place] % (Auto) 6.8 Eos % (Auto) 1.1 L Baso % (Auto) 0.5 Neut # (Auto) 6700 Lymph # (Auto) 1700 Mobile # (Auto) 600 Eos # (Auto) 100 Baso # (Auto) 100 PT 12.2 INR 1.1 APTT 25 L D Sodium 140 Potassium 3.8 Chloride 107 Carbon Dioxide 26 BUN 24 H Creatinine 0.90 Estimated GFR > 60.0 BUN/Creatinine Ratio 26.7 H Glucose 128 H Calcium 9.9 Total Bilirubin 0.5 AST 30 ALT 17 Alkaline Phosphatase 70 Total Protein 6.9 Albumin 3.9 Globulin 3.0 Albumin/Globulin Ratio 1.3 Blood Type Antibody Screen 12/02/19 12/03/19 20:34 00:39 WBC RBC Hgb 10.2 L Hct 29.7 L MCV MCH MCHC RDW Plt Count Neut % (Auto) Lymph % (Auto) [place] % (Auto) Eos % (Auto) Baso % (Auto) Neut # (Auto) Lymph # (Auto) Mobile # (Auto) Eos # (Auto) Baso # (Auto) PT INR APTT Sodium Potassium Chloride Carbon Dioxide BUN Creatinine Estimated GFR BUN/Creatinine Ratio Glucose Calcium Total Bilirubin AST ALT Alkaline Phosphatase Total Protein Albumin Globulin Albumin/Globulin Ratio Blood Type O Negative Antibody Screen Negative Assessment & Plan Assessment and plan (1) Bright red rectal bleeding: Current visit: Yes Status: Acute (2) Acute hypotension: Current visit: Yes Status: Acute (3) Cholelithiasis: Qualifiers: Biliary obstruction: without biliary obstruction Cholecystitis presence: without cholecystitis Cholelithiasis location: gallbladder Qualified Code(s): K80.20 - Calculus of gallbladder without cholecystitis without obstruction Current visit: Yes Status: Acute (4) Diverticulosis: Current visit: Yes Status: Acute (5) Anemia due to blood loss, acute: Current visit: Yes Status: Acute Assessment & Plan narrative: 69 yo woman with acute blood loss from a GI source. Right now she is hemodynamically stable and her Hgb is 10. She is still passing some blood, but has slowed down. Will plan on recheck of hgb at 5AM, and consider bowel prep later today and scope once she is prepped, probably Thursday. Will transfuse if hgb <8 or symptomatic. Plan: Keep type and screen up to date home meds (levothyroxine 50mcg) recheck CBC at 5AM pain med/antiemetic as needed bowel prep during the day as appropriate Addendum: Patient seen at 8:30 a.m. this morning, and says she is feeling well and feels that the bloody stool is decreasing. Her hemoglobin is now 7.8. Spoke about the risks and benefits of transfusion verses waiting to see if her hemoglobin drops further prior to transfusion. She is concerned about feeling weak, and lightheaded, and her blood pressure is on the lower side. She is going to have to endure bowel prep today and colonoscopy tomorrow. Given all of that and my discussion with the patient about the risks and benefits of transfusion, we have elected to go ahead and transfuse her 2 units of blood this morning. Today she will have clear liquids, bowel prep using 4 L of GoLYTELY this afternoon, and plan on colonoscopy on Thursday with possible procedures for hemostasis. Risks and benefits of this procedure were discussed with the patient and she desires to proceed with this plan including colonoscopy tomorrow. Time Spent With Patient Time with patient: Greater than 35 minutes Quality VTE Deep Vein Thrombosis/Pulmonary Embolism Present on Admission: No
--- NOTE | 2019-12-03 03:06 | PC.ADMIT ---
Addendum entered by Angelika Hauser R.N. 12/03/19 06:40: H/H this morning 7.8/22.5 - results called to Dr. Redmond as well as update on patients BP and need for PRN IVF bolus. Orders to transfuse 2 units received. Addendum entered by Angelika Hauser R.N. 12/03/19 05:27: SBP X 2 < 100 - IVF bolus initiated per orders. Addendum entered by Angelika Hauser R.N. 12/03/19 04:53: Moderate liquid stool with medium clots, dark red in color. Original Note: [email or web address] Admission Note: The patient,Merced Thornton,69 y/o, was given written information regarding hospital policies, unit procedures and contact persons. Patient's smoking status: Never smoker. Vital Signs - 8 hr 12/02/19 20:06 12/02/19 21:30 12/02/19 22:30 Temperature 98.1 F Pulse Rate 71 78 78 Respiratory Rate 18 16 20 Blood Pressure 127/60 Blood Pressure [Left Arm] 112/61 104/58 L Pulse Oximetry 100 94 96 12/02/19 22:40 12/02/19 22:55 12/02/19 23:40 Temperature Pulse Rate 61 73 75 Respiratory Rate 28 H 13 38 H Blood Pressure Blood Pressure [Left Arm] 83/48 L 71/50 L 146/78 H Pulse Oximetry 99 100 98 12/03/19 00:00 12/03/19 00:30 12/03/19 01:19 Temperature 98.6 F Pulse Rate 72 72 71 Respiratory Rate 16 22 18 Blood Pressure 123/68 Blood Pressure [Left Arm] 123/68 145/79 H Pulse Oximetry 100 100 98 12/03/19 02:23 Temperature Pulse Rate 69 Respiratory Rate 18 Blood Pressure 117/61 Blood Pressure [Left Arm] Pulse Oximetry 95 Patient arrived to room 227 via stretcher at 0130 in NAD. VSS, afebrile. Transferred from stretcher to bed with assist. BP stable since admission. One small bloody stool in brief. Discussed fall precautions - patient verbalized understanding. IVF LR @ 100/hour initiated. Octreotide GTT infusing per orders. Dr. Redmond up to assess patient around 0230. Oriented to room and plan of care - verbalized understanding.
[2019-12-03] MEDS: SODIUM CHLORIDE 0.9% 1,000 ML 1000 ML IV (05:21)
[2019-12-03 06:15] LABS: Add Manual Diff / Slide Review NO; Basophils Absolute Auto 0 /uL (0-100); Basophils Percent Auto 0.4 % (0-2); Eosinophils Absolute Auto 0 /uL (0-450); Eosinophils Percent Auto 0.3 % (2-4); Hematocrit 22.5 % (36-46); Hemoglobin 7.8 g/dL (12.0-16.0); Lymphocytes Absolute Auto 1000 /uL (1100-4500); Lymphocytes Percent Auto 18.1 % (25-40); Mean Corpuscular HGB Conc 34.8 % (30-36); Mean Corpuscular Hemoglobin 33.4 PG (26-34); Mean Corpuscular Volume 95.9 fL (80-100); Monocytes Absolute Auto 300 /uL (0-900); Monocytes Percent Auto 5.6 % (3-14); Neutrophils Absolute Auto 4100 /uL (1500-7000); Neutrophils Percent Auto 75.6 % (50-75); Platelet Count 221 X10^3/uL (150-400); Red Blood Cell Count 2.34 X10^6/uL (4.0-5.2); Red Cell Distribution Width 12.9 % (11.6-14.8); White Blood Cell Count 5.4 X10^3/uL (4.5-11.0)
[2019-12-03] MEDS: OCTREOTIDE 500 MCG in SODIUM CHLORIDE 0.9% 100 ML IV (14:26)
--- NOTE | 2019-12-03 14:47 | PC.NURSE ---
AM shift Pt is A/o x4, denies dizziness. Up to BSC Stooling, liquid merna red blood, reports this has lessened since admission. Pt reporting overall fatigue, VSS. Tele in place. NSR. LR @ 150, Octreotide @ 5mls/hr. 2 units of PRBC ordered. Consent obtained, and started. See TAR for VS. Denies pain. Tolerating clear liquid diet without nausea. Using call light for needs. BA for fall this hospital stay.
[2019-12-03] MEDS: PEG3350/SOD SULF,BICARB,CL/KCL 4,000 ML SOLUTION 4000 ML PO (16:19)
--- NOTE | 2019-12-03 16:29 | PC.NURSE ---
1619- Bowel prep started. Patient had one stool about 100cc clots and blood. Vitals stable. Will monitor
--- NOTE | 2019-12-03 19:26 | PC.NURSE ---
1915-Patient is tolerating the Go-lytely prep. Patient has about 3/4 of the gallon prep to go. Patient denies any dizziness or diaphoresis when voiding. Patient understands the need for the prep and is compliant.
[2019-12-03] MEDS: ONDANSETRON 4 MG/2 ML INJ IV ×2 (19:55→23:50)
--- NOTE | 2019-12-03 20:11 | PC.NURSE ---
1945 - Pt up to bs. Denies lightheadedness upon rising and transfer to [facility], however following BM and returning to bed pt c/o lightheadedness, dizziness, pale. Assist back to bed, while repositioning, pt c/o nausea. Set up in bed and had approximately 800cc of clear emesis. Zofran given. Linen changed. During emesis pt was incontinent of small bloody stool. Pericare and brief changed. Pt remains pale and tremulous. Warm blankets provided. Vital signs stable. SBP at just following emesis, 114. Upon completion of care, SBP 120. Encourage pt to take a break from bowel prep. Educated to bed mitchell use r/t safety. Pt verbalized understanding. Call light in reach.
[2019-12-03 21:29] LABS: Add Manual Diff / Slide Review NO; Basophils Absolute Auto 0 /uL (0-100); Basophils Percent Auto 0.5 % (0-2); Eosinophils Absolute Auto 100 /uL (0-450); Eosinophils Percent Auto 1.2 % (2-4); Hematocrit 25.6 % (36-46); Hemoglobin 8.7 g/dL (12.0-16.0); Lymphocytes Absolute Auto 1500 /uL (1100-4500); Lymphocytes Percent Auto 22.3 % (25-40); Mean Corpuscular Hemoglobin 32.1 PG (26-34); Mean Corpuscular Volume 94.5 fL (80-100); Monocytes Absolute Auto 400 /uL (0-900); Monocytes Percent Auto 6.5 % (3-14); Neutrophils Absolute Auto 4600 /uL (1500-7000); Neutrophils Percent Auto 69.5 % (50-75); Platelet Count 183 X10^3/uL (150-400); Red Blood Cell Count 2.71 X10^6/uL (4.0-5.2); Red Cell Distribution Width 14.3 % (11.6-14.8); White Blood Cell Count 6.6 X10^3/uL (4.5-11.0)
[2019-12-04] VITALS (23 sets, daily range): BP systolic 91–131; BP diastolic 49–69; PULSE 14–84; RESP 10–20; TEMP 36.2–37.1; O2SAT 89–100
[2019-12-04] MEDS: LACTATED RINGERS 1,000 ML 100 ML IV (00:24)
--- NOTE | 2019-12-04 01:09 | PC.NURSE ---
Addendum entered by Angelika Hauser R.N. 12/04/19 02:36: H/H 6.8/19.6 - first unit of PRBC's infusing at this time. Patient resting comfortably. Addendum entered by Angelika Hauser R.N. 12/04/19 01:37: Dr. Burroughs updated on patient status, bleeding and vital signs. Lab up to draw AM labs early. Verbal order to transfuse 2 units PRBC's if hgb < 8. Awaiting results. Original Note: Patient with large amount of stool, merna red blood in brief and on pad. Bedpan placed and measured 450 mL of merna red liquid. Placed on 2LNC for comfort and anxiety - patient becomes quite panicked when stooling. Reassurance given. BP 91/63 MAP 72, HR 70-90's. Octreotide GTT continued. Golytely completed with the exception of about 300 mL - patient too nauseated to continue. NPO currently. Bed alarm active.
[2019-12-04 01:55] LABS: Add Manual Diff / Slide Review NO; Basophils Absolute Auto 0 /uL (0-100); Basophils Percent Auto 0.5 % (0-2); Eosinophils Absolute Auto 0 /uL (0-450); Eosinophils Percent Auto 0.4 % (2-4); Lymphocytes Absolute Auto 1100 /uL (1100-4500); Mean Corpuscular HGB Conc 34.6 % (30-36); Mean Corpuscular Hemoglobin 32.3 PG (26-34); Mean Corpuscular Volume 93.2 fL (80-100); Monocytes Absolute Auto 200 /uL (0-900); Monocytes Percent Auto 4.6 % (3-14); Neutrophils Absolute Auto 4000 /uL (1500-7000); Neutrophils Percent Auto 73.5 % (50-75); Platelet Count 178 X10^3/uL (150-400); Red Cell Distribution Width 14.4 % (11.6-14.8); White Blood Cell Count 5.4 X10^3/uL (4.5-11.0)
[2019-12-04 01:57] LABS: Hematocrit 19.6 % (36-46); Hemoglobin 6.8 g/dL (12.0-16.0)
[2019-12-04 02:02] LABS: Alanine Aminotransferase 11 IU/L (<35); Albumin 2.2 g/dL (3.5-5.0); Alkaline Phosphatase 33 U/L (38-126); Aspartate Aminotransferase 17 IU/L (14-36); Bilirubin Total 0.8 mg/dL (0.2-1.3); Blood Urea Nitrogen 17 mg/dL (7-17); Carbon Dioxide 28 mmol/L (22-32); Chloride 109 mmol/L (98-107); Estimated Glomerular Filt Rate > 60.0 mL/min (>60); Globulin 2.1 g/dL (1.7-4.1); Glucose 143 mg/dL (80-110); HEMOLYSIS < 15 (0-50); Magnesium 1.8 mg/dL (1.6-2.3); Potassium 3.8 mmol/L (3.4-5.1); Sodium 137 mmol/L (137-145); Total Protein 4.3 g/dL (6.3-8.2)
[2019-12-04 02:14] LABS: Calcium 7.6 mg/dL (8.4-10.2)
[2019-12-04] MEDS: PANTOPRAZOLE 40 MG VIAL IV (08:03)
--- NOTE | 2019-12-04 09:12 | PC.NURSE ---
Addendum entered by Zuleiam Horowitz R.N. 12/04/19 12:41: 1242-Contact info for Son provided for Cici ARAUZ, for consent, as Pt remains sedated and Dr Burroughs would like to add upper scope as well. Addendum entered by Zuleima Horowitz R.N. 12/04/19 11:21: 1120-Pt off floor to OR with [employer]. Original Note: Am shift Pt is A/o x4, anxious about today's scope. Completed 2nd unit of blood @ 0900. Plan for scope with Dr Burroughs at ~ 10am. Denies pain, no symptoms getting to BSC. VSS. Remains NPO, oral care provided. Recheck CBC prior to Scope, 1 hr post transfusion. BA active.
--- NOTE | 2019-12-04 09:32 | PM.PN.1 ---
Subjective Subjective Date Patient Seen: 12/04/19 Time Patient Seen: 09:32 Interval history: The patient had another episode of concern if get rectal bleeding overnight, and a stat CBC resulted in hemoglobin of 6.8. She is still in process of 2 additional units being transfused. She became very symptomatic with hypotension, dizziness, and nausea, and vomiting during this bleeding episode, and says she feels much better since the transfusions have been going in. She has had a little bit more blood passing this morning since the episode last night, but no more significant output. She did complete her bowel prep. Exam Vital Signs (past 8 hours): - 12/04/19 02:18 12/04/19 02:28 12/04/19 02:45 Temperature 98.5 F 98.5 F 98.2 F Pulse Rate 79 74 70 Respiratory Rate 10 L 20 18 Blood Pressure 96/52 L 96/52 L 107/57 L Pulse Oximetry 94 12/04/19 02:46 12/04/19 05:57 12/04/19 05:59 Temperature 98.2 F 98.7 F 98.7 F Pulse Rate 14 L 70 67 Respiratory Rate 14 13 20 Blood Pressure 107/57 L 108/58 L 108/58 L Pulse Oximetry 99 100 12/04/19 06:15 12/04/19 06:35 12/04/19 08:00 Temperature 98.7 F 98.5 F 98.8 F Pulse Rate 67 66 84 Respiratory Rate 20 20 16 Blood Pressure 108/58 L 112/57 L 117/63 Pulse Oximetry 99 98 Oxygen Delivery Method Nasal Cannula Oxygen Flow Rate 1 Narrative Exam Narrative: GENERAL: Alert, comfortable, oriented, appears stated age HENT: Normocephalic, atraumatic. Hearing intact. Oral mucosa is pink and moist. EYES: Conjunctiva pink, sclera white, no periorbital swelling. CARDIOVASCULAR: Regular rate. No pedal edema. RESPIRATORY: Non-tachypneic, breathing comfortably on room air. GASTROINTESTINAL: Abdomen soft and non-distended GENITALURINARY: No flank tenderness. MUSCULOSKELETAL: Equal tone and mass bilaterally. SKIN: Warm, dry, soft, appropriate color for ethnicity. No other lesions, rashes, or wounds. NEURO: Alert and Oriented X 3. No gross sensory deficits, or cognitive issues. PSYCH: Appropriate affect and mood. Objective Labs Result Diagrams: 12/04/19 01:33 12/04/19 01:33 Labs: Laboratory Results - last 24 hr 12/02/19 12/03/19 12/04/19 20:34 21:08 01:33 WBC 6.6 5.4 RBC 2.71 L 2.10 L Hgb 8.7 L 6.8 L* Hct 25.6 L 19.6 L* MCV 94.5 93.2 MCH 32.1 32.3 MCHC 34.0 34.6 RDW 14.3 14.4 Plt Count 183 178 Neut % (Auto) 69.5 73.5 Lymph % (Auto) 22.3 L 21.0 L [place] % (Auto) 6.5 4.6 Eos % (Auto) 1.2 L 0.4 L Baso % (Auto) 0.5 0.5 Neut # (Auto) 4600 4000 Lymph # (Auto) 1500 1100 [place] # (Auto) 400 200 Eos # (Auto) 100 0 Baso # (Auto) 0 0 Sodium Potassium Chloride Carbon Dioxide BUN Creatinine Estimated GFR BUN/Creatinine Ratio Glucose Calcium Magnesium Total Bilirubin AST ALT Alkaline Phosphatase Total Protein Albumin Globulin Albumin/Globulin Ratio Blood Type O Negative Antibody Screen Negative Crossmatch See Detail 12/04/19 01:33 WBC RBC Hgb Hct MCV MCH MCHC RDW Plt Count Neut % (Auto) Lymph % (Auto) [place] % (Auto) Eos % (Auto) Baso % (Auto) Neut # (Auto) Lymph # (Auto) [place] # (Auto) Eos # (Auto) Baso # (Auto) Sodium 137 Potassium 3.8 Chloride 109 H Carbon Dioxide 28 BUN 17 Creatinine 0.50 L Estimated GFR > 60.0 BUN/Creatinine Ratio 34.0 H Glucose 143 H Calcium 7.6 L Magnesium 1.8 Total Bilirubin 0.8 AST 17 ALT 11 Alkaline Phosphatase 33 L Total Protein 4.3 L Albumin 2.2 L Globulin 2.1 Albumin/Globulin Ratio 1.0 Blood Type Antibody Screen Crossmatch Assessment & Plan Assessment and plan (1) Anemia due to blood loss, acute: Current visit: Yes Status: Acute (2) Bright red rectal bleeding: Current visit: Yes Status: Acute (3) Acute hypotension: Current visit: Yes Status: Acute (4) Diverticulosis: Current visit: Yes Status: Acute Assessment & Plan narrative: This is a 69-year-old woman with ongoing GI bleeding, now on her 4th unit of transfusion, with symptomatic acute blood-loss anemia. I suspect this is coming from her diverticulosis. Plan is to do a colonoscopy this morning and tried a diagnosed site of bleeding, and soft bleeding if possible. She will need in anesthesiologist present to manage her airway and keep her sedated during the procedure as it will be along and potentially complicated procedure that will not be safe for me to attend to her sedation as well as manage the difficulty of her procedure. The risks and benefits of diagnostic, possibly therapeutic colonoscopy with possible biopsy and possible procedures for hemostasis have been discussed with the patient. Risk of bleeding, perforation, need for additional procedures, prolonged hospital stay, need to transfer to tertiary center, need for subsequent surgical resection of her colon, risk of anesthesia, were discussed with the patient who desires to proceed. Time Spent With Patient Time with patient: Greater than 35 minutes Quality VTE Deep Vein Thrombosis/Pulmonary Embolism Present on Admission: No
[2019-12-04 10:32] LABS: Add Manual Diff / Slide Review NO; Basophils Absolute Auto 0 /uL (0-100); Basophils Percent Auto 0.7 % (0-2); Eosinophils Absolute Auto 100 /uL (0-450); Eosinophils Percent Auto 0.9 % (2-4); Hematocrit 26.8 % (36-46); Hemoglobin 9.3 g/dL (12.0-16.0); Lymphocytes Absolute Auto 1800 /uL (1100-4500); Lymphocytes Percent Auto 28.1 % (25-40); Mean Corpuscular HGB Conc 34.9 % (30-36); Mean Corpuscular Hemoglobin 30.8 PG (26-34); Mean Corpuscular Volume 88.2 fL (80-100); Monocytes Absolute Auto 500 /uL (0-900); Monocytes Percent Auto 7.9 % (3-14); Neutrophils Absolute Auto 4100 /uL (1500-7000); Neutrophils Percent Auto 62.4 % (50-75); Platelet Count 149 X10^3/uL (150-400); Red Blood Cell Count 3.03 X10^6/uL (4.0-5.2); White Blood Cell Count 6.5 X10^3/uL (4.5-11.0)
--- NOTE | 2019-12-04 12:07 | CM.DANOTE ---
Addendum entered by Savannah Cee LPN 12/04/19 12:22: Went to room as planned. REGLA Dewey confirms that pt has left unit for PACU and will return sometime later this afternoon. White Board in pt's room is updated with DC Product Marketing Engineer contact information. DCP team follow prn as POC unfolds to assist with d/c issues and options. Original Note: Discharge Planning/Care Management DCP: assessment: case received, EMR reviewed. Discussed in Team Rounds. Pt is a 69 year old female who admitted yesterday morning to care of [facility]: Dr. Burroughs. Payer: [facility] Medicare A only Admission status: OBS: confirmed by UR REGLA Russell Pt is admitted for rectal hemorrhage with episodes continuing in the hospital. Has had a total of 4 units of blood thus far and plan is now for a surgical procedure today with Dr. Burroughs. Will meet with pt to continue the assessment process. CM Discharge Assessment Start: 12/04/19 12:06 Freq: Status: Active Protocol: Document 12/04/19 12:07 ITV (Rec: 12/04/19 12:07 IT [id number]) Discharge Planning Assessment Advance Directives? No History Provided By Patient,Medical Record Prior Living Arrangements House Household Members none Whiteboard Updated in Patient Room with Yes name and ext. # of Tree Surgeon Review Status In Process
--- NOTE | 2019-12-04 12:14 | SUR.HOLD ---
1130 late entry: Transferred patient from room 227 to PACU for procedure. Patient GCS 15, denies any pain, no SOB. Skin is pink,warm and dry.
--- NOTE | 2019-12-04 12:48 | SUR.OPER ---
This nurse obtained verbal consent via telephone from patient's daughter, Miladis Mcdonald, to proceed with EGD. Patient has been sedated for colonoscopy and physician has deemed it necessary to do an EGD to assess for bleeding source. Miladis can be reached at [phone] and will be here at [facility] in a few hours per telephone conversation. Dr Burroughs notified of conversation and consent from daughter to proceed with EGD.
--- NOTE | 2019-12-04 13:13 | PM.OP.1 ---
Operative Date/Time/Diagnoses Date of procedure: 12/04/19 Time of procedure: 13:13 Pre-op diagnosis: Rapid GI bleed Post-op diagnosis: other (Extensive diverticulosis; unidentified source of GI bleed) Procedure & Clinicians Procedure: EGD and colonoscopy Same procedure as scheduled: Yes Indications: Rapid GI bleed with intermittent bright red blood and clots from rectum for three days. This patient has been very ill and has received 4 units of blood transfusion over the last 2 days. Her procedures was expected to be prolonged and difficult, requiring general anesthesia, and management by an anesthesiologist in order to perform the expected procedure. Surgeon: Claire Burroughs Click Yes if Unassisted: Yes Anesthesia Type: General Operative Notes Findings: Extensive diverticulosis, with clots in several of the diverticula in the sigmoid colon. No active source of bleeding was found. Specimen(s): none sent Estimated Blood Loss (mL): 0 Blood products transfused: none Procedure in detail: The patient was brought to the room and placed supine in her hospital bed. General anesthesia was induced and the patient was intubated by Dr. Reed. The patient was then placed in left lateral decubitus position with all bony prominences padded. A rectal exam was performed revealing no significant abnormalities. The colonoscope was then introduced to the rectum and advanced to the cecum in the usual fashion. The cecum was identified by the appendiceal orifice, the mucosal tri-fold, and the ileocecal valve. The scope was then retracted while rotating side to side and examining each mucosal fold. Diverticulosis was seen throughout the colon, with some clots plugging diverticula of the sigmoid colon. When the clots were washed out, no active bleeding was seen. No source of active bleeding was identified throughout the colon. The scope was then advanced back into the cecum again for a 2nd look, and each diverticula was interrogated, but no active bleeding at all was identified. At the conclusion of the procedure retroflexion was performed and small grade 1-2 internal hemorrhoids without stigmata of bleeding were seen. The scope was then withdrawn from the rectum. At this point we mated phone call to the patient's daughter and got verbal consent to go ahead and do an upper endoscopy. A bite block was placed to protect the patient's lips teeth and tongue, and the gastroscope was passed over the tongue into the esophagus without incident. Once in the esophagus, a tubular view was maintained, and the scope was advanced through the esophagus into the stomach. The scope was advanced through the stomach and into pylorus and into the 1st part of the duodenum. It was then advanced into the 2nd and 3rd portions of the duodenum. No active bleeding was seen, no significant angiodysplasias, polyps, ulcers, or other source of bleeding were seen. The scope was then withdrawn out of the patient, and the procedure was concluded. Patient was awakened from anesthesia and extubated, she was transferred to the PACU in stable condition. All instrument counts were correct at the end of the procedure. Complications: none Post-operative Condition: stable Disposition: PACU Plan for aftercare: Will discuss options with patient including transfer to another hospital for small bowel evaluation, or repeat studies if another bleed occurs.
[2019-12-04] MEDS: ONDANSETRON 4 MG/2 ML INJ IV (14:56)
--- NOTE | 2019-12-04 15:30 | PC.NURSE ---
Pt returned from PACU @ 1400, drowsy, wakes easily to voice and taking PO ice chips. VSS. 1430-Pt reports urge to sit upright, assisted to dangle at edge of bed, Pt became unresponsive, with pause of >20seconds on Tele, Pt able to respond ~20 seconds later, able to open eyes and respond to staff, following instructions, nausea followed by emesis. Pt reports she is feeling better, zofran given. Dr Burroughs at bedside by 1445, STAT 12 lead ordered. Oncoming REGLA Lopez, updated on patients condition, and review of Tele shows complete heart block prior to event.
--- NOTE | 2019-12-04 16:14 | PM.DS.1 ---
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 She presented to the ER this evening after acute onset of significant rectal bleeding that started at about 5PM. Her hgb in the ER was 11.3, and came down to 10.2 after fluid resuscitation. She feels her bleeding has slowed down. She denies any abdominal pain, although she has some cramping when passing the blood. She has nausea and lightheadedness when she passed the bloody stool, but feels fine now in terms of that. She had a CT scan in the ER which showed diverticulosis and gall stones. ROS: 13 system review, otherwise negative other than as mentioned in HPI. PE: CONSTITUTIONAL: Awake, Alert, Oriented, Comfortable EENT: PERRL, FROM of eyes, no discharge, Oral mucosa is moist and pink NECK: Supple, no obvious JVD, nontachypneic, brathing comfortably on room air. THORAX: No deformity, retractions, chest wall tenderness, subcutaneous air or crepitice. LUNGS: Clear with symmetrical breath sounds without respiratory distress HEART: NSR; no LE edema; There is no tachycardia. CHEST: bilateral well healed breast reconstruction scars with nipple tattoo's bilaterally ABDOMEN: Soft, nontender, nondistended; no surgical scars EXTREMITIES: No edema, cyanosis, deformity or tenderness. SKIN: No rash, bruising, petechiae or purpura. NEURO: Awake, alert, oriented, conversive, cranial nerves II-XII are symmetrical and normal, moves all 4 extremities and is ambulatory Discharge Providers Provider Date of admission: 12/03/19 00:27 Discharge Date: 12/04/19 Primary care physician: AINSLEY Vega Discharge provider: Claire Burroughs MD Summary Hospital Course Discharge Diagnosis: Copious rectal bleeding, without unidentified source. Hospital Course: The patient came in the hospital on Thursday night, was admitted around 3:00 a.m. Thursday morning. We did serial hemoglobin checks, and started her on a bowel prep during the day on Thursday. Her hemoglobin drifted down to 7.8. She was transfused 2 units of blood and came up to 8.7. She continued to intermittently pass bright red blood and clots per rectum. When she would passed the blood she would become hypotensive, and have some pauses on telemetry. During the night last night she had another episode like this, and her follow-up hemoglobin was down to 6.8. She was transfused 2 units and came up to 9.3. This morning she had upper and lower endoscopy, and no source of bleeding was identified. After her endoscopy she came back up to the floor and had another syncopal episode during which she had a 30 second pause on tele. Subsequently she had an EKG which appeared normal. I have contacted the synthetic filament spinner, Dr. Echevarria, who is willing to see her, and will likely consult when she transfers to [facility]. I have spoken with Dr. Eaton who is accepting hospitalist. I spoke to Dr. Thorne who is the GI doctor on-call over at [facility]. They are all in agreement to accept her in transfer, to evaluate her cardiac status, and to continue her workup for identifying the GI bleed which will likely require a bleeding scan, and possibly angiography, which we do not have here at [facility]. Status at Discharge Cognitive/behavioral status at discharge: oriented Overall status at discharge: patient is not back to baseline Time Spent with Patient Time spent: Greater than 30 minutes Exam Vital Signs (past 8 hours): - 12/04/19 09:48 12/04/19 13:11 12/04/19 13:15 Temperature 98.3 F 97.2 F L Pulse Rate 70 64 77 Respiratory Rate 15 10 L 10 L Blood Pressure 108/60 109/58 L 109/49 L Pulse Oximetry 89 L 90 L 12/04/19 13:20 12/04/19 13:25 12/04/19 13:30 Temperature Pulse Rate 72 71 72 Respiratory Rate 15 17 12 Blood Pressure 93/69 108/60 111/69 Pulse Oximetry 90 L 90 L 96 12/04/19 13:35 12/04/19 13:42 12/04/19 13:50 Temperature 97.2 F L Pulse Rate 65 65 65 Respiratory Rate 12 12 12 Blood Pressure 97/67 111/58 L 117/66 Pulse Oximetry 96 97 96 12/04/19 14:05 12/04/19 14:30 12/04/19 15:46 Temperature 98.5 F 98.5 F 98.5 F Pulse Rate 64 67 67 Respiratory Rate 16 16 18 Blood Pressure 126/64 121/64 125/58 L Pulse Oximetry 98 97 94 Oxygen Delivery Method Room Air Oxygen Flow Rate 0 Narrative Exam Narrative: GENERAL: Alert, comfortable, fatigued HENT: Normocephalic, atraumatic. Hearing intact. Oral mucosa is pink and moist. EYES: Conjunctiva pink, sclera white, no periorbital swelling. CARDIOVASCULAR: Regular rate. No pedal edema. RESPIRATORY: Non-tachypneic, breathing comfortably on room air. GASTROINTESTINAL: Abdomen soft and non-distended GENITALURINARY: No flank tenderness. MUSCULOSKELETAL: Equal tone and mass bilaterally. SKIN: Warm, dry, soft, appropriate color for ethnicity. No other lesions, rashes, or wounds. NEURO: Alert and Oriented X 3. No gross sensory deficits, or cognitive issues. PSYCH: Appropriate affect and mood. Objective Labs Result Diagrams: 12/04/19 10:20 12/04/19 01:33 Labs: Laboratory Results - last 24 hr 12/02/19 12/03/19 12/04/19 20:34 21:08 01:33 WBC 6.6 5.4 RBC 2.71 L 2.10 L Hgb 8.7 L 6.8 L* Hct 25.6 L 19.6 L* MCV 94.5 93.2 MCH 32.1 32.3 MCHC 34.0 34.6 RDW 14.3 14.4 Plt Count 183 178 Neut % (Auto) 69.5 73.5 Lymph % (Auto) 22.3 L 21.0 L [place] % (Auto) 6.5 4.6 Eos % (Auto) 1.2 L 0.4 L Baso % (Auto) 0.5 0.5 Neut # (Auto) 4600 4000 Lymph # (Auto) 1500 1100 [place] # (Auto) 400 200 Eos # (Auto) 100 0 Baso # (Auto) 0 0 Sodium Potassium Chloride Carbon Dioxide BUN Creatinine Estimated GFR BUN/Creatinine Ratio Glucose Calcium Magnesium Total Bilirubin AST ALT Alkaline Phosphatase Total Protein Albumin Globulin Albumin/Globulin Ratio Blood Type O Negative Antibody Screen Negative Crossmatch See Detail 12/04/19 12/04/19 01:33 10:20 WBC 6.5 RBC 3.03 L Hgb 9.3 L Hct 26.8 L MCV 88.2 D MCH 30.8 MCHC 34.9 RDW 16.0 H Plt Count 149 L Neut % (Auto) 62.4 Lymph % (Auto) 28.1 [place] % (Auto) 7.9 Eos % (Auto) 0.9 L Baso % (Auto) 0.7 Neut # (Auto) 4100 Lymph # (Auto) 1800 [place] # (Auto) 500 Eos # (Auto) 100 Baso # (Auto) 0 Sodium 137 Potassium 3.8 Chloride 109 H Carbon Dioxide 28 BUN 17 Creatinine 0.50 L Estimated GFR > 60.0 BUN/Creatinine Ratio 34.0 H Glucose 143 H Calcium 7.6 L Magnesium 1.8 Total Bilirubin 0.8 AST 17 ALT 11 Alkaline Phosphatase 33 L Total Protein 4.3 L Albumin 2.2 L Globulin 2.1 Albumin/Globulin Ratio 1.0 Blood Type Antibody Screen Crossmatch Discharge Plan Discharge Plan Disposition: [facility] Discharge Data Primary Care Provider: Melanie Yu Attending Provider: Claire Burroughs Admit Date/Time: 12/03/19 00:27 Quality VTE Deep Vein Thrombosis/Pulmonary Embolism Present on Admission: No
== END 2019-12-04 17:40 | disposition short-term general hospital (02) ==
LOC: ED 12-03 00:27 → AC 12-03 00:32 → ICU 12-03 14:47 → AC 12-06 14:23 → ICU 12-06 14:23
PROVIDERS: Admitting Provider Surgery; Emergency Provider Emergency Medicine; PCP Nurse Practitioner Family; Referring Provider Emergency Medicine; Visit Provider Surgery
PROC: 0DJD8ZZ Inspection of Lower Intestinal Tract, Via Natural or Artificial Opening Endoscopic (ICD-10-PCS; CPT 45378; principal; 2019-12-04 10:45)
PROC: 0DJ08ZZ Inspection of Upper Intestinal Tract, Via Natural or Artificial Opening Endoscopic (ICD-10-PCS; CPT 43235; 2019-12-04 10:45)
DX: K92.1 Melena (principal); D62 Acute posthemorrhagic anemia; K57.30 Diverticulosis of large intestine without perforation or abscess without bleeding; K64.0 First degree hemorrhoids; I95.9 Hypotension, unspecified; K80.20 Calculus of gallbladder without cholecystitis without obstruction; R11.2 Nausea with vomiting, unspecified; R55 Syncope and collapse
CPT/HCPCS: 43235; 45378; 36415; 36430; 74177; 80053; 83735; 85014; 85018; 85025; 85610; 85730; 86850; 86900; 86901; 87797; 93005; 96361; 96365; 96366; 96368; 96375; 96376; 99219; 99284; 99285; G0378; P9016; C9113; J1100; J2354; J2405; J2704; J3010

== ENCOUNTER → 2022-04-22 14:22 | Outpatient (CLI) | payer OTHER, SELFPAY ==
[2019-12-03 00:50] VITALS: BMI 27.4
== END ==
PROVIDERS: PCP Internal Medicine; Referring Provider Internal Medicine; Visit Provider Internal Medicine
DX: Z78.0 Asymptomatic menopausal state (principal); Z90.79 Acquired absence of other genital organ(s); M85.89 Other specified disorders of bone density and structure, multiple sites
CPT/HCPCS: 77080

== ENCOUNTER → 2023-08-24 10:52 | Outpatient (CLI) | payer MEDICARE, SELFPAY ==
[2019-12-03 00:50] VITALS: BMI 27.4
--- NOTE | 2023-08-24 | DI.RAD.S_ITS ---
PROCEDURE: XR HIP W PEL IF DONE LT 2V INDICATIONS: HIP PAIN TECHNIQUE: AP pelvis with lateral view(s) of the left hip(s). COMPARISON: None. FINDINGS: Bones: No acute fractures or dislocations. Pelvic ring appears intact. Mild degenerative changes of the bilateral hips. Mild lower lumbar spondylosis. No suspicious bony lesions. Soft tissues: The visualized bowel gas pattern is normal. No suspicious soft tissue calcifications. IMPRESSION: Left hip without acute fracture or dislocation. Mild degenerative changes of the bilateral hips and lower lumbar spine. Dictated by: Filemon Verduzco M.D. on 08/24/2023 at 17:07 Approved by: Filemon Verduzco M.D. on 08/24/2023 at 17:08
== END ==
PROVIDERS: PCP Internal Medicine; Referring Provider Internal Medicine; Visit Provider Internal Medicine
DX: M25.552 Pain in left hip (principal); M47.816 Spondylosis without myelopathy or radiculopathy, lumbar region
CPT/HCPCS: 73502

== ENCOUNTER → 2024-05-05 12:44 | Outpatient (CLI) | payer MEDICARE, SELFPAY ==
[2019-12-03 00:50] VITALS: BMI 27.4
[2024-05-05 17:12] LABS: Cholesterol 255 mg/dL (140-199); HDL Cholesterol 92 mg/dL (40-60); LDL Cholesterol Calculated 146 mg/dL (<100); Triglycerides 85 mg/dL (35-150)
[2024-05-05 17:47] LABS: TSH w/ Reflex to FT4 0.35 uIU/mL (0.47-4.68)
[2024-05-05 18:15] LABS: Free T4, Direct Thyroxine 1.68 ng/dL (0.78-2.19)
== END ==
PROVIDERS: Family Provider Internal Medicine; PCP Internal Medicine; Referring Provider Internal Medicine; Visit Provider Internal Medicine
DX: E78.00 Pure hypercholesterolemia, unspecified (principal); E89.0 Postprocedural hypothyroidism
CPT/HCPCS: 36415; 80061; 83695; 84439; 84443

== ENCOUNTER 2025-01-12 13:53 | Emergency (ER) | payer MEDICARE, SELFPAY ==
[2019-12-03 00:50] VITALS: BMI 27.4
[2025-01-12] VITALS (15 sets, daily range): BP systolic 130–159; BP diastolic 61–91; PULSE 62–93; RESP 18–52; TEMP 36.1; O2SAT 93–100; BMI 28.1
--- NOTE | 2025-01-12 14:15 | EKG_ITS ---
[facility] [address] [address] Test Date: 2025-01-12 Pat Name: Merced Thornton Department: [facility] Room: Gender: Female Jerker: : 1950 Requested By: Order Number: [id number] Reading MD: Patrick Mantilla MD Measurements Intervals [place] Rate: 76 P: 27 CO: 174 QRS: -8 QRSD: 86 T: 59 QT: 410 QTc: 461 Interpretive Statements Sinus rhythm with premature atrial complexes Electronically Signed On 01-12-2025 16:41:34 PDT by Patrick Mantilla MD
--- NOTE | 2025-01-12 14:32 | ED_ITS ---
HPI - Dizziness General Chief Complaint: Dizziness Stated Complaint: Vertigo Time Seen by Provider: 01/12/25 14:29 History of Present Illness HPI Narrative: 74-year-old female with history of Graves disease, right-handed with no prior history of stroke, has had prior vertigo episodes, has done neck/head exercises, more severe since this morning, with nausea and repeated episodes of nonbloody emesis. No focal weakness to face arm or leg. No focal numbness to face arm or leg. No injury trauma. No blood thinner medications taken. No visual disturbances. No associated palpitations or shortness of breath. No syncope or presyncopal symptoms. No seizure, shaking activities. She has history of pacemaker, placed after severe vasovagal reaction to GI bleed workup when endoscopies were attempted but she had severe low heart rate/blood pressure problems, subsequently had placement of pacemaker. Related Data Home Medications Medication Instructions Recorded Confirmed LEVOTHYROXINE SODIUM (SYNTHROID) 112 mcg PO Q DAY ##0 02/09/13 12/03/19 diphenhydramine HCl 25 mg capsule 25 mg PO TID PRN Congestion 12/03/19 12/03/19 (Allergy (diphenhydramine)) multivitamin with minerals-folic 0.4 mg PO DAILY 12/03/19 12/03/19 acid 0.4 mg tablet (Adult One Daily Multivitamin) Previous Rx's Medication Instructions Recorded tramadol 50 mg tablet 100 mg (2 x 50 mg) PO Q8H PRN pain 01/10/24 #30 tabs meclizine 50 mg tablet 50 mg PO BID #30 tabs 01/12/25 ondansetron 4 mg disintegrating 4 mg PO Q6H PRN nausea and 01/12/25 tablet vomiting #7 tabs Allergies Allergy/AdvReac Type Severity Reaction Status Date / Time latex Allergy Mild RED AND Verified 01/10/24 13:40 ITCHY SKIN Patient History Medical History (Updated 01/12/25 @ 15:39 by Niraj Rogers MD) Breast cancer Graves disease Surgical History Status post mastectomy Social History household members: none Smoking Status: Never smoker alcohol intake: current substance use type: does not use Smoking Status: Never smoker alcohol intake frequency: holidays/special occasions only Exam Narrative Exam Narrative: GENERAL: Well-developed patient, in mild distress. HEAD: Atraumatic. Normocephalic. EYES: Pupils equal round and reactive. Extraocular motions intact. No scleral icterus. No injection or drainage. ENT: Nose without bleeding, purulent drainage. Throat without erythema, tonsillar hypertrophy or exudate. Airway patent. NECK: Trachea midline. Non tender CARDIOVASCULAR: Regular rate and rhythm without murmurs, gallops, or rubs. RESPIRATORY: Clear to auscultation. Breath sounds equal bilaterally. No wheezes, rales, or rhonchi. GASTROINTESTINAL: Abdomen soft, non-tender, nondistended. EXTREMITIES: No edema or joint tenderness. BACK: Nontender without deformity or crepitance. No flank tenderness. NEURO: AOx3. Motor functions grossly nonfocal. SKIN: No rash or erythema of visible areas Initial Vital Signs Initial Vital Signs: Vital Signs Temperature 97.0 F L 01/12/25 14:00 Pulse Rate 69 01/12/25 14:00 Respiratory Rate 18 01/12/25 14:00 Blood Pressure 136/91 H 01/12/25 14:00 Pulse Oximetry 96 01/12/25 14:00 Oxygen Delivery Method Room Air 01/12/25 14:00 Course Orders Ordered: ED Orders 01/12/25 14:15 EKG-12 Lead Stat 01/12/25 14:30 CT angio head and neck Stat CT head/brain wo con Stat 01/12/25 14:40 Complete Blood Count AUTO DIFF Stat Comprehensive Metabolic Panel Stat Lipase Stat Discontinued Medications Meclizine HCl (Meclizine Hcl 12.5 Mg Tablet) 50 mg PO NOW ONE Stop: 01/12/25 15:26 Last Admin: 01/12/25 15:40 Dose: 50 mg Documented By: FRANCO Ondansetron HCl (Ondansetron 4 Mg/2 Ml Inj) 4 mg IV NOW PRN PRN Reason: Nausea And Vomiting Last Admin: 01/12/25 14:46 Dose: 4 mg Documented By: FRACNO Ondansetron HCl (Ondansetron 4 Mg Odt) 4 mg PO NOW PRN PRN Reason: Nausea And Vomiting Vital Signs Vital signs: Vital Signs - 8 hr 01/12/25 14:00 01/12/25 14:17 01/12/25 14:17 Temperature 97.0 F L Pulse Rate 69 93 H Respiratory Rate 18 40 H Blood Pressure 136/91 H 159/68 H Pulse Oximetry 96 100 Oxygen Delivery Method Room Air 01/12/25 14:30 01/12/25 14:31 01/12/25 14:31 Temperature Pulse Rate 72 73 Respiratory Rate 49 H 26 H Blood Pressure 144/63 H Pulse Oximetry Oxygen Delivery Method 01/12/25 15:00 01/12/25 15:00 01/12/25 15:41 Temperature Pulse Rate 62 63 Respiratory Rate 35 H Blood Pressure 135/63 Pulse Oximetry 93 Oxygen Delivery Method 01/12/25 15:51 01/12/25 15:51 01/12/25 16:00 Temperature Pulse Rate 62 Respiratory Rate 24 Blood Pressure 144/63 H 130/61 Pulse Oximetry Oxygen Delivery Method 01/12/25 16:00 01/12/25 16:30 01/12/25 16:31 Temperature Pulse Rate 65 63 Respiratory Rate 22 38 H Blood Pressure 156/69 H Pulse Oximetry 100 Oxygen Delivery Method 01/12/25 16:31 01/12/25 17:04 01/12/25 17:11 Temperature Pulse Rate 64 69 Respiratory Rate 40 H 27 H Blood Pressure 147/72 H Pulse Oximetry 100 Oxygen Delivery Method 01/12/25 17:11 01/12/25 17:30 01/12/25 17:31 Temperature Pulse Rate 65 66 67 Respiratory Rate 41 H 42 H 52 H Blood Pressure Pulse Oximetry 100 98 96 Oxygen Delivery Method 01/12/25 17:31 01/12/25 18:00 Temperature Pulse Rate 67 Respiratory Rate 37 H Blood Pressure 151/68 H 145/65 H Pulse Oximetry 100 Oxygen Delivery Method MDM - Dizziness Lab Data Attestation: I reviewed the patient's lab results. Lab results narrative: White blood cell count 5700, hemoglobin 14.4, platelets adequate. Glucose 167. BUN 19 with creatinine 0.56 normal. Electrolytes unremarkable. Serum CO2 normal. Liver functions and lipase normal. 01/12/25 14:40 01/12/25 14:40 Labs: Lab Results 01/12/25 Range/Units 14:40 WBC 5.7 (4.5-11.0) X10^3/uL RBC 4.46 (4.0-5.2) X10^6/uL Hgb 14.4 (12.0-16.0) g/dL Hct 42.5 (36-46) % MCV 95.5 (80-100) fL MCH 32.4 (26-34) PG MCHC 33.9 (30-36) % RDW 13.1 (11.6-14.8) % Plt Count 245 (150-400) X10^3/uL Neut % (Auto) 90.0 H (50-75) % Lymph % (Auto) 7.3 L (25-40) % [place] % (Auto) 2.4 L (3-14) % Eos % (Auto) 0.1 L (2-4) % Baso % (Auto) 0.2 (0-2) % Neut # (Auto) 5100 (3183-8740) /uL Lymph # (Auto) 400 L (0124-3903) /uL [place] # (Auto) 100 (0-900) /uL Eos # (Auto) 0 (0-450) /uL Baso # (Auto) 0 (0-100) /uL Sodium 138 (137-145) mmol/L Potassium 4.0 (3.4-5.1) mmol/L Chloride 104 (98-107) mmol/L Carbon Dioxide 23 (22-32) mmol/L BUN 19 H (7-17) mg/dL Creatinine 0.56 (0.52-1.04) mg/dL Estimated GFR > 60 (>60) mL/min BUN/Creatinine Ratio 33.9 H (6-22) Glucose 167 H (80-110) mg/dL Calcium 10.7 H (8.4-10.2) mg/dL Total Bilirubin 0.8 (0.2-1.3) mg/dL AST 35 (14-36) IU/L ALT 23 (<35) IU/L Alkaline Phosphatase 81 (38-126) U/L Total Protein 8.1 (6.3-8.2) g/dL Albumin 4.7 (3.5-5.0) g/dL Globulin 3.4 (1.7-4.1) g/dL Albumin/Globulin Ratio 1.4 (1.0-2.8) Lipase 43 (23-300) U/L Imaging Data CT scan - head: Radiologist's Impression: [address] [address] [address] Scan Report Signed Patient: Merced Thornton MR#: [id number] : 1950 Acct:[id number] Age/Sex: 74 / F Date of Service: 01/12/25 Loc: ED Accession Number: [id number] Procedure: CT head/brain wo con Ordering Provider: Niraj Rogers MD PROCEDURE: CT HEAD/BRAIN WO CON INDICATIONS: vertigo TECHNIQUE: Noncontrast 4.5 mm thick angled axial sections acquired from the foramen magnum to the vertex, with coronal and sagittal reformats. For radiation dose reduction, the following was used: automated exposure control, adjustment of mA and/or kV according to patient size. COMPARISON: None. FINDINGS: Image quality: Diagnostic. CSF spaces: Basal cisterns are patent. No extra-axial fluid collections. The ventricles are symmetric in size and shape. Brain: No intracranial bleeds or masses. There is cerebral volume loss for age, with resultant ventricular and sulcal prominence. There are periventricular and deep white matter chronic small vessel ischemic changes. There is intracranial internal carotid artery atherosclerosis. Skull and face: Calvarium and visualized facial bones appear intact, without suspicious lesions. Sinuses: Visualized sinuses and mastoids are clear. IMPRESSION: No acute intracranial pathology. Dictated by: Wesley Sethi M.D. on 01/12/2025 at 15:42 Approved by: Wesley Sethi M.D. on 01/12/2025 at 15:42 CTA - brain/neck: Radiologist's Impression: Close Head CT (Signed) Wesley Sethi - 01/12/25 Head/Neck CTA (Signed) Wesley Sethi - 01/12/[address] [address] [address] Scan Report Signed Patient: Merced Thornton MR#: [id number] : 1950 Acct:[id number] Age/Sex: 74 / F Date of Service: 01/12/25 Loc: ED Accession Number: [id number] Procedure: CT angio head and neck Ordering Provider: Niraj Rogers MD PROCEDURE: CT ANGIO HEAD AND NECK INDICATIONS: vertigo TECHNIQUE: After the administration of intravenous contrast, 1 mm thick sections acquired from the aortic arch through the [place]. 3-dimensional zxqpirj-bxlysaisq-liitnaezvd (MIP) and/or volume rendering reformats were acquired of the central intracranial vasculature and neck separately. For radiation dose reduction, the following was used: automated exposure control, adjustment of mA and/or kV according to patient size. COMPARISON: [facility], CT, CT HEAD/BRAIN WO CON, 01/12/2025, 15:22. FINDINGS: Image quality: Diagnostic. BRAIN: CSF spaces: Ventricles are normal in size and shape. Basal cisterns are patent. No extra-axial fluid collections. Brain: No significant abnormality of the brain can be seen. Skull and face: Calvarium and facial bones appear intact, without suspicious lesions. Orbits appear normal. Sinuses: Sinuses and mastoids are clear. HEAD CT ANGIOGRAPHY: Anterior circulation: Intracranial internal carotid arteries are normal in size and flow. The flow within the paired anterior cerebral arteries is normal and symmetric. The flow within the middle cerebral arteries is normal and symmetric. The anterior communicating artery is seen. No aneurysms are seen. Posterior circulation: Visualized portions of the vertebral arteries demonstrate normal caliber, and join to form a normal appearing basilar artery. Flow within the posterior cerebral arteries is normal and symmetric. No aneurysms are seen. NECK CT ANGIOGRAPHY: Carotid system: The great vessels demonstrate a conventional anatomy as they arise from the aortic arch. The origins of the common carotid arteries appear patent. The common carotid arteries demonstrate normal caliber and courses. The bifurcation regions are both widely patent. The internal carotid arteries demonstrate normal calibers and courses. Posterior circulation: The origins of the vertebral arteries both appear widely patent. The more superior extracranial portions of both vertebral arteries also demonstrate normal courses and calibers. They join to form a normal appearing basilar artery. Soft tissues: Visualized neck soft tissues demonstrate no suspicious abnormalities. Left chest wall pacemaker is seen. Bones: No suspicious bony lesions. Visualized cervical spine appears normally aligned. IMPRESSION: 1. No significant intracranial arterial abnormality is seen. 2. No significant abnormality is seen within the arteries of the neck. Any quantitative measurements of stenosis were performed using NASCET criteria. Dictated by: Wesley Sethi M.D. on 01/12/2025 at 15:59 Approved by: Wesley Sethi M.D. on 01/12/2025 at 16:01 ECG Data Attestation: I personally reviewed and interpreted this ECG as follows: Interpretation: Normal sinus rhythm with PACs. No obvious ST segment elevation or depression changes. RI 174, QRS 86, QTC 461. MDM Narrative Medical decision making narrative: 74-year-old female with history recurrent vertigo, prior physical therapy had adjustments, no recent procedures, since this morning has had severe vertigo, no recent cough cold symptoms, afebrile, unsteady on gait, numerous episodes of vomiting. No history of TIA/stroke. CT noncontrast scan ordered, CTA head and neck vessels ordered. History of pacemaker, we will interrogate, but represents contraindication to MRI brain imaging. CT head negative study, see radiology report. CT angiogram head and neck vessels, no significant narrowing or any thrombosis. See radiology report. Oral meclizine, tolerated. [employer] pacemaker, interrogation, phone call from [employer], dual pacemaker, 6.9 year battery life, atrial lead noise noted, episodes of SVT brief in episodic and has been reported in the past. No changes obvious to account for her ongoing recent vertigo symptoms. Patient feels improved, ambulation trial. Patient ambulated, still feels somewhat nauseated but no emesis, overall improved, exhibits steady gait. We will discharge on oral meclizine and ODT Zofran. Follow up with PCP early this week advised. Advised not to drive her car until her symptoms are resolved, also not to operate any machinery until her symptoms are resolved. Home via friend who will drive patient to her home. Discharge Plan Departure Patient Disposition: Home Clinical Impression: Vertigo, History of cardiac pacemaker Instructions: DI for Vertigo Activity Restrictions/Additional Instructions: History of prior vertigo episodes, not usually this severe, more severe vertigo- like symptoms this morning, with multiple episodes of nonbloody emesis. Worse with movements of body and/or head. No fever, unremarkable vitals. CT head noncontrast study no acute changes. CT angiogram head and neck vessels no significant narrowing or any acute thrombosis describe. Per radiology readings of the studies. Oral meclizine antihistamine was given, symptoms improved, able to ambulate when you are barely able to move on initial presentation. Still some residual nausea. We will give prescription for further meclizine course to take by mouth to control or at least dampen your vertigo spinning like sensations. Ondansetron oral dissolvable tablet for nausea also sent as prescription, to use if needed. Do not operate your vehicle or any machinery until your symptoms are resolved. Be extremely careful with sudden movements as they could in theory precipitate more dizziness, and lead to falls. You had a history of a pacemaker, we interrogated the pacemaker which did show some known brief episodes of SVT, your battery life was 6.9 years by tech report by phone. Further follow up of your pacemaker in your cardiology clinic. Unfortunately the existence of a pacemaker is a contraindication for MRI of the brain additional imaging. We are not able to perform any MRI of the brain, which sometimes can show strokes not visible on regular CT scan imaging. We did discuss taking an oral aspirin daily, but you have history of gastrointestinal bleeding, so you are advised to hold this or any other blood thinners for now. Take meclizine as discussed above. Take ondansetron as needed for control of residual nausea symptoms. Recheck symptoms with your regular doctor early this next week. Return to this/nearest emergency department for any change worsening symptoms or any concerns prior. Prescriptions: New meclizine 50 mg tablet 50 mg PO BID Qty: 30 1RF ondansetron 4 mg tablet,disintegrating 4 mg PO Q6H PRN (Reason: nausea and vomiting) Qty: 7 0RF No Action tramadol 50 mg tablet 100 mg PO Q8H PRN (Reason: pain) Qty: 30 0RF Rx Instructions: DNExceed 3 doses/24h LEVOTHYROXINE SODIUM (SYNTHROID) 112 mcg PO Q DAY Qty: 0 diphenhydramine HCl [Allergy (diphenhydramine)] 25 mg Capsule 25 mg PO TID PRN (Reason: Congestion) Adult One Daily Multivitamin 0.4 mg Tablet 0.4 mg PO DAILY Referrals: Mary Lou Marquez ARNP [Primary Care Provider] - Stand Alone Forms: Patient Portal/API/Survey
[2025-01-12] MEDS: ONDANSETRON 4 MG/2 ML INJ IV (14:46)
--- NOTE | 2025-01-12 14:52 | PC.NURSE ---
Patient hyperventilates when she gets vertigo. The nausea that she has causes increased breathing rate. She is 100% 02 sat on RA with no signs of cyanosis. She was medicated for nausea.
[2025-01-12 15:04] LABS: Alanine Aminotransferase 23 IU/L (<35); Albumin 4.7 g/dL (3.5-5.0); Albumin Globulin Ratio 1.4 (1.0-2.8); Alkaline Phosphatase 81 U/L (38-126); Aspartate Aminotransferase 35 IU/L (14-36); BUN Creatinine Ratio 33.9 (6-22); Bilirubin Total 0.8 mg/dL (0.2-1.3); Blood Urea Nitrogen 19 mg/dL (7-17); Calcium 10.7 mg/dL (8.4-10.2); Carbon Dioxide 23 mmol/L (22-32); Chloride 104 mmol/L (98-107); Estimated Glomerular Filt Rate > 60 mL/min (>60); Globulin 3.4 g/dL (1.7-4.1); Glucose 167 mg/dL (80-110); HEMOLYSIS 26 (0-50); Lipase 43 U/L (23-300); Sodium 138 mmol/L (137-145); Total Protein 8.1 g/dL (6.3-8.2)
[2025-01-12 15:14] LABS: Add Manual Diff / Slide Review NO; Basophils Absolute Auto 0 /uL (0-100); Basophils Percent Auto 0.2 % (0-2); Eosinophils Absolute Auto 0 /uL (0-450); Eosinophils Percent Auto 0.1 % (2-4); Hematocrit 42.5 % (36-46); Hemoglobin 14.4 g/dL (12.0-16.0); Lymphocytes Absolute Auto 400 /uL (1100-4500); Lymphocytes Percent Auto 7.3 % (25-40); Mean Corpuscular HGB Conc 33.9 % (30-36); Mean Corpuscular Hemoglobin 32.4 PG (26-34); Mean Corpuscular Volume 95.5 fL (80-100); Monocytes Absolute Auto 100 /uL (0-900); Monocytes Percent Auto 2.4 % (3-14); Neutrophils Absolute Auto 5100 /uL (1500-7000); Platelet Count 245 X10^3/uL (150-400); Red Blood Cell Count 4.46 X10^6/uL (4.0-5.2); Red Cell Distribution Width 13.1 % (11.6-14.8); White Blood Cell Count 5.7 X10^3/uL (4.5-11.0)
[2025-01-12] MEDS: MECLIZINE HCL 12.5 MG TABLET 50 MG PO (15:40)
--- NOTE | 2025-01-12 17:59 | PC.NURSE ---
ED physician supportive of BP for D/C. Charge aware. Pt AOx4, GCS 15, denies pain. Had large BM before D/C. Feeling much better.
== END 2025-01-12 18:00 | disposition home or self-care (01) ==
PROVIDERS: Emergency Provider Emergency Medicine; Family Provider Internal Medicine; PCP Internal Medicine
DX: R42 Dizziness and giddiness (principal); Z95.0 Presence of cardiac pacemaker
CPT/HCPCS: 36415; 70450; 70496; 70498; 80053; 83690; 85025; 93005; 93010; 96374; 99284; J2405

== ENCOUNTER → 2025-10-03 08:05 | Outpatient (CLI) | payer MEDICARE, SELFPAY ==
[2019-12-03 00:50] VITALS: BMI 27.4
--- NOTE | 2025-10-03 08:07 | DI.ECHO.S_ITS ---
[facility] : : [address] : : [place] : : [id number] : : Phone: [phone] Echocardiogram Report + + :Name: DEEPAK GAMBOA Study Date: 10/03/2025 Height: 67 in : :Hospital ReadingLocation: Weight: 180 lb : : Gender: Female BSA: 1.9 m2 : :: 1950 Age: 75 yrs BP: 137/79 mmHg: :Reason For Study: TIA : :Ordering Physician: THA, : :CARMELO Performed By: Royal Mcgraw : :Referring: CARMELO ALMAZAN : + + Interpretation Summary The study quality was technically difficult. The ejection fraction is estimated to be 55-60%. Diastolic function is indeterminate. Left ventricular wall thickness is mildly increased. The left atrium is mildly dilated. The right ventricle is normal in size and function. There is mild aortic regurgitation. There is mild tricuspid regurgitation. The right ventricular systolic pressure is estimated to be at least 30 mmHg based on an estimated right atrial pressure of 3 mm Hg. Compared to the prior study 12/05/2019, the left ventricle is less dynamic and the size of the atria has decreased. Procedure: A two-dimensional transthoracic echocardiogram with color flow and Doppler was performed. The study quality was technically difficult. Comparison is made with the echocardiogram of 12/05/2019. The patient has a paced rhythm. Left Ventricle: The left ventricle is normal in size. Left ventricular wall thickness is mildly increased. There is no ventricular septal defect visualized. The ejection fraction is estimated to be 55-60%. Regional wall motion abnormalities cannot be excluded due to limited visualization. Diastolic function is indeterminate. Right Ventricle: The right ventricle is normal in size and function. There is a pacemaker lead in the right ventricle. Atria: The left atrium is mildly dilated. Right atrial size is normal. There is a catheter/pacemaker lead seen in the right atrium. There is no Doppler evidence for an interatrial shunt. Mitral Valve: The mitral valve is normal. There is trace mitral regurgitation. Aortic Valve: The aortic valve is trileaflet. The aortic valve opens well. There is no aortic valve stenosis. There is mild aortic regurgitation. Tricuspid Valve: The tricuspid valve leaflets are thin and pliable. There is mild tricuspid regurgitation. The right ventricular systolic pressure is estimated to be at least 30 mmHg based on an estimated right atrial pressure of 3 mm Hg. Pulmonic Valve: The pulmonic valve is not well seen, but is grossly normal. There is no pulmonic valvular regurgitation. Great Vessels: The aortic root is mildly dilated. The dimensions of the ascending aorta are normal. The pulmonary artery branches are not well visualized. The IVC is of normal diameter and collapses greater than 50% with a sniff. This suggests a low right atrial pressure of 3 mm Hg. Pericardium/ Pleura There is no pericardial effusion. There is no pleural effusion. MMode/2D Measurements & Calculations LVIDd: 5.1 cm LVOT diam: 2.0 cm LVIDs: 3.1 cm Ao root diam: 3.9 cm FS: 39.0 % asc Aorta Diam: 3.6 cm EPSS: 0.74 cm IVSd: 1.1 cm LVPWd: 1.1 cm LV elkins. diameter/BSA (cm/m^2): 2.7 LV sys. diameter/BSA (cm/m^2): 1.6 LA A2 area: 22.0 cm2 RA long axis: 5.1 cm LA A4 area: 18.9 cm2 RA area: 17.2 cm2 LA length (vol): 5.2 cm RA vol: 49.4 ml LA vol: 68.5 ml RA : 25.5 ml/m2 LA vol index: 35.4 ml/m2 IVC diam: 1.3 cm RVD1 (basal): 3.7 cm RVD2 (mid): 3.5 cm TAPSE: 2.0 cm Doppler Measurements & Calculations Ao V2 max: 166.6 cm/sec LVOT Max Piyush: 130.8 cm/sec Ao V2 mean: 108.4 cm/sec LV V1 max P.8 mmHg Ao max P.1 mmHg LV V1 VTI: 31.3 cm Ao mean P.3 mmHg WILBERTO(I,D): 2.7 cm2 Ao V2 VTI: 35.5 cm WILBERTO(V,D): 2.4 cm2 sev ratio: 0.88 WILBERTO indexed to BSA (cm^2/m^2): 1.4 AI P1/2t: 556.9 msec AI dec slope: 255.7 cm/sec2 MV E max piyush: 66.2 cm/sec TR max piyush: 258.7 cm/sec MV A max piyush: 85.6 cm/sec TR max P.8 mmHg MV E/A: 0.77 PA V2 max: 66.2 cm/sec Med Peak E' Piyush: 4.9 cm/sec PA V2 mean: 48.6 cm/sec E/E' med: 13.4 PA mean P.0 mmHg Lat Peak E' Piyush: 5.3 cm/sec PA pr(Accel): 49.9 mmHg E/E' lat: 12.4 E/e' average: 12.9 MV dec time: 0.19 sec SV(LVOT): 97.5 ml Reading Physician:06:24 PM
== END ==
LOC: ECHO 08:06
PROVIDERS: Family Provider Internal Medicine; PCP Registered Nurse; Referring Provider Registered Nurse; Visit Provider Registered Nurse
DX: G45.9 Transient cerebral ischemic attack, unspecified (principal); I08.2 Rheumatic disorders of both aortic and tricuspid valves; R47.89 Other speech disturbances
CPT/HCPCS: 93306